=== PATIENT | male | born 1965 | race Caucasian/White ===

== ENCOUNTER 2022-02-20 08:10 | Outpatient (CLI) | payer OTHER, SELFPAY ==
--- NOTE | 2022-02-20 09:00 | CRLHL7_ITS ---
For Patients: As a result of the Century Cures Act, medical imaging exams and procedure reports are released immediately into your electronic medical record. You may view this report before your referring provider. If you have questions, please contact your health care provider. Indication: PELVIC AND PERINEAL PAIN Technique: Postcontrast CT abdomen and pelvis. Oral water. Nine hundred 98 cc Isovue 370 intravenous contrast. Please note that all CT scans at this facility use dose modulation, iterative reconstruction, and/or weight-based dosing when appropriate to reduce radiation dose to as low as reasonably achievable. Comparison: None Findings: Lung bases are clear. No pleural effusion. Benign cysts are present within the liver measuring up to 1.6 cm. Normal gallbladder. Pancreas normal. Normal spleen and adrenal glands. Normal kidneys and ureters. No intra-abdominal or intrapelvic adenopathy. Postop changes of partial colectomy with intact primary anastomosis within the left pelvis. No bowel obstruction, free air, free fluid or abscess. Tiny umbilical hernia containing fat measuring less than 1 cm. No bladder stone. Prostate mildly prominent. Grade 1/2 spondylolytic spondylolisthesis L5 on S1 with associated degenerative disc disease. Impression: Diffuse hepatic steatosis with incidental benign cysts. Postop changes partial colectomy. No bowel obstruction or inflammatory change. No peroneal abscess or pelvic soft tissue mass. Please note that all CT scans at this facility use dose modulation, iterative reconstruction, and/or weight-based dosing when appropriate to reduce radiation dose to as low as reasonably achievable. Dictated by Jesus Hernandez MD @ 02/20/2022 9:36:05 AM (Electronically Signed)
== END 2022-02-20 08:11 | disposition home or self-care (01) ==
LOC: CT 08:11
PROVIDERS: PCP Family Medicine; Visit Provider Family Medicine
DX: R10.2 Pelvic and perineal pain (principal); K76.0 Fatty (change of) liver, not elsewhere classified; K76.89 Other specified diseases of liver
CPT/HCPCS: 74177; Q9967

== ENCOUNTER 2022-07-12 14:38 | Outpatient (CLI) | payer OTHER, SELFPAY ==
--- OUTSIDE RECORDS SUMMARY | 2022-07-12 14:55 | XMS_ITS | Encounter Summary ---
:1965 Author Care Team Providers Name Role Phone Ameya Joyce MD Primary Care Provider [phone] Reason for Visit Varicocele Assessment and Plan 1. Cyst of epididymis Discussion Note will set up for excision of left epidid ymal cyst. MARIE discussed. Patient educational handouts: No information available. Plan of Care Reminders Provider Appointments [facility] 60 07/19/2022 12:00PM Chris villegas MD Lab None recorded. ? ? Referral None recorded. ? ? Procedures None recorded. ? ? Surgeries None recorded. ? ? Imaging None recorded. ? ? Medications Name Start Date ? ? amitriptyline 10 mg tablet ? atorvastatin 20 mg tablet ? Medications Administered None recorded. Vitals Height Weight BMI 6 ft 2 in 235 lbs 30.2 kg/m2 Results Lab Results None recorded. Allergies Code Code System Name Reaction Severity Onset Penicillins ? ? 06/09/2015 Problems None recorded. Procedures Date Name Performed by ? 05/15/2018 Colonoscopy Information not avai lable ? Arthroscopic Meniscectomy Information no t available ? Procedure on Wrist Information not avai lable Notes: both ? Excision of Colon Information not avai lable Vaccine List Vaccine Type COVID-19, mRNA, LNP-S, PF, 30 mcg/0.3 mL dose (Entefy) 11/25/2020 12/16/2020 08/05/2021 Influenza, injectable, MDCK, preservativ e free, quadrivalent 05/11/2020 influenza, injectable, quadrivalent, pre servative free 08/05/2018 influenza, recombinant, quadrIvalent,inj ectable, preservative free 07/13/2021 influenza, seasonal, injectable 06/22/2011 08/23/2012 05/20/2014 influenza, seasonal, injectable, preserv ative free 06/08/2015 zoster recombinant 05/11/2020 09/01/2020 Social History Tobacco Smoking Status Former Smoker What was the date of your most recent tobacco 05/15/2022 screening? What is your level of alcohol consumption? Moderate Do you or have you ever used any other forms of N tobacco or nicotine? What is your level of caffeine consumption? Heavy When did you quit smoking? 16+yearssincelastcigarette Family History Relation Problem Onset Age of Age Notes Brother Diverticulitis (No Information) N/A (No Notes ) Father Malignant tumor of lung (No Information) N/A (No Notes) Mother Malignant tumor of lung (No Information) N/A (No Notes) Functional Status Unknown. Past Encounters 05/15/2022 Cyst of Epididymis Chris Gonzales MD: [address], [place] [address], Ph. History of Present Illness Note: <div>has U/S done after the last visit and showed varicocele left >right. still getting some bother from the left side. </div> Review of Systems ? Comprehensive General Adult ROS Reported By: Patient Constitutional: Constitutional: no fever, no chills Eyes: Eyes: no dry eyes, no vision change, no irritation Endocrine: Endocrine: no fatigue, no in creased thirst Cardiovascular: Cardiovascular: no chest prudence n, no palpitations Integumentary: Skin: no rashes, no change i n skin color Respiratory: Respiratory: no wheezing, no cough, no shortness of breath Gastrointestinal: Gastrointestinal: no abdomin al pain, no nausea, no vomiting, no constipation, no GERD Musculoskeletal: Musculoskeletal: no neck prudence n, no back pain Neurologic: Neurologic: no tremor, no di zziness, no numbness, no headaches Genitourinary: Genitourinary: no incontinen ce, no difficulty urinating ENMT: Ears: no ear pain. Mouth/Thr oat: no sore throat Allergic/Immunologic: Allergy/Immunologic: no itch ing, no hives Hematologic/Lymphatic: Hematologic/Lymphatic no swo llen glands, no excessive bleeding Psychiatric: Psych: no hallucinations, (n ormal) sleep disturbances: mismatch of sleep / wake paula edule with lifestyle needs Physical Exam ? General Adult Exam Male Reported By: Patient Constitutional: General Appearance: healthy- appearing. Level of Distress: NAD. Ambulation: ambulating riley lly Lungs: Respiratory effort: no dyspn ea. Auscultation: breath sounds normal, good air movement Abdomen: Hernia: none palpable Male : Scrotum: varicocele; left. T cruz: palpable bilaterally, not enlarged; left epididymal cy st, tis is the tender spot
--- OUTSIDE RECORDS SUMMARY | 2022-07-12 14:55 | XMS_ITS | Clinical Summary ---
:1965 Author Organization [employer] [facility] [place] [address] Care Team Providers Name Role Phone George Preston MD Unavailable Unavailable Pcp, No Primary Care Provider Unavailable Allergies Active Allergy Reactions Severity Noted Date Comments Penicillins Hives 12/02/2007 Oxycodone-Acetaminophen Rash 06/30/2008 Medications Medication Sig Dispensed Refills Start Date End Date Status PROTONIX 20 MG TAB 20mg twice daily 0 Active Active Problems Problem Noted Date SBO (small bowel obstruction) 07/02/2008 Inguinal hernia with obstruction, without mention of g angrene, unilateral 03/23/2008 or unspecified, (not specified as recurrent) Diverticulitis of colon (without mention of hemorrhage ) 03/16/2008 Immunizations Name Administration Dates Next Due COVID-19 vaccine (DataContact 30mcg/0.3mL) PF, 1, 11/25/2020 DANIELLE Family History Medical History Relation Name Comments Cancer Father Cancer Mother Relation Name Status Comments Father Alive lung cancer Mother (Age 67) lung cancer Social History Tobacco Use Types Packs/Day Years Used Date Former Smoker Smokeless Tobacco: Current User Chew Tobacco Cessation: Ready to Quit: No; Co unseling Given: Yes Alcohol Use Standard Drinks/Week Comments Yes 2 (1 standard drink = 0.6 oz pure alcoho l) per month Alcohol Habits Answer Date Recorded How often do you have a drink containing alcohol? Not asked How many drinks containing alcohol do you have on a typical Not asked day when you are drinking? How often do you have six or more drinks on one occasion? No t asked Comment: per month 09/21/2015 Sex Assigned at Date Recorded Not on file Obstetrics History Last Filed Vital Signs Vital Sign Reading Time Taken Comments Blood Pressure 114/76 09/21/2015 11:11 AM DANCING MASTER Pulse 84 09/21/2015 10:19 AM DANCING MASTER Temperature 36.1 ??C (97 ??F) 09/21/2015 10:19 AM DANCING MASTER Respiratory Rate 20 09/21/2015 10:19 AM DANCING MASTER Oxygen Saturation 97% 09/21/2015 10:19 AM DANCING MASTER Inhaled Oxygen Concentration - - Weight 103 kg (227 lb 1.6 oz) 09/21/2015 10:19 AM DANCING MASTER Height 186.7 cm (6' 1.5) 09/21/2015 10:19 AM DANCING MASTER Body Mass Index 29.56 09/21/2015 10:19 AM DANCING MASTER Plan of Treatment Health Maintenance Due Date Last Done Comments Tdap 1978 HIV for age 15-65 1982 Hepatitis C screening for age 18-79 1985 Tetanus booster 1987 Colonoscopy through age 75 2012 Lipids for age 45-75 2012 BMI (ht and wt on same day) for age 18+ 09/21/2016 09/21/19 16 Depression screening for age 12+ 09/21/2016 09/21/2015 Zoster (shingles) series for age 50+ (1 of 2017 2) COVID-19 vaccine series (3 - Booster for 02/10/2021 021, 11/25/2020 Pfizer series) Influenza for age 50-64 04/13/2022 Medical Devices Implanted Type Area Director Facilities Maintenance Device Shelf Model / Identifier Expiration Serial / Date Lot Graft Alloderm 6x16cm - [id number] Left: [place] 07/13/2009 [id number] / Implanted: Qty: 1 on 03/23/2008 at [facility] / [id number] Description: LOGGED & MAILED JI Results Not on filefrom Last 3 Months Insurance Payer Benefit Plan Subscriber ID Effective Phone Address Typ e / Group Dates WC WORKERS COMP WC MARJORIE [id number] 2014-Prese [phone] [address] [address] CMS nt [address] [place] [address] WC WORKERS COMP WC MARJORIE [id number] 2014-Prese [address] [address] [place] [address] WC WORKERS COMP WC MARJORIE [id number] 2015-Pres [address] [address] [place] [address] WC WORKERS COMP WC MARJORIE [id number] 2015-Pres [address] [address] [place] [address] [facility] [id number] 2020-Prese [address] [place] [address] Yon Moreau Comp Self 1965 [address] [place] [address] Yon Moreau Comp Self [address] ([address]) [place] [address] Yon Moreau Comp Self [address] ([address] [address] Yon Moreau Comp Self [address] ([address] [address] Yon Moreau Personal/Family Self 1965 [address]Home) [place] [address] Yon Moreau Personal/Family Self [address] (Home) [place] [address] Advance Directives Latest Code Status on File Code Status Date Activated Date Inactivated Comments Full Code 08/27/2008 8:26 AM 08/28/2008 2:22 AM Full Code 07/02/2008 9:19 AM 07/05/2008 6:17 PM Full Code 06/25/2008 9:39 AM 06/30/2008 6:19 PM Full Code 03/23/2008 11:34 PM 03/24/2008 8:55 PM Full Code 03/15/2008 6:02 PM 03/20/2008 1:27 PM Care Teams Social Work Specialist Relationship Specialty Start Date End Date Pcp, No PCP - General 11/25/20 . George Preston MD Family Practice 08/19/14
--- OUTSIDE RECORDS SUMMARY | 2022-07-12 14:55 | XMS_ITS ---
:1965 Author Care Team Providers Name Role Phone SANTOS FLORES MD Primary Care Provider [phone] Allergies Code Code System Name Reaction Severity Status Onset Penicillins ? ? Active 06/09/20 15 Medications Name Status Start Date Stop Date ? ? amitriptyline 10 mg tablet Active ? Not a vailable atorvastatin 20 mg tablet Active ? Not av ailable azithromycin 250 mg tablet Completed ? 04/13 TAKE 2 TABLETS BY MOUTH FOR 1 DAY THEN TAKE 1 TABLET BY MOUTH DAILY FOR 4 DAYS celecoxib 200 mg capsule Completed ? 022 doxycycline hyclate 100 mg capsule Completed ? 04/13/2022 TAKE 1 CAPSULE BY MOUTH TWICE DAILY FOR 14 DAYS hydrocodone 5 mg-acetaminophen 325 mg tablet Completed ? 04/13/2022 TAKE 1 TABLET BY MOUTH EVERY 6 HOURS NEEDED FOR PAIN Problems None recorded. Procedures Date Name Performed by ? 05/15/2018 Colonoscopy Information not avai lable ? Arthroscopic Meniscectomy Information no t available ? Procedure on Wrist Information not avai lable Notes: both ? Excision of Colon Information not avai lable 04/13/2022 US, Scrotum [facility] [address] [facility] [facility] [place] [address] (Work Place) Results Lab Results Date Name Specimen Result Interpretation Description Value Range Status Address ? 04/13/2022 Urinalysis, ? pH-Status 6.0 ? ? [facility]: [address], [place] ? ? ? Blood-Status Trace ? ? [facility]: [address], [place] 04/13/2022 Urinalysis, ? No observation ? ? ? Dipstick recorded. Past Encounters 05/15/2022 Cyst of Epididymis Chris Gonzales MD: [address], [place] [address], Ph. 04/13/2022 Pain in Testicle; Pain in Scrotum Chris Gonzales MD: [address] [facility] [facility], [place] [address], Ph. Social History Tobacco Smoking Status Former Smoker Vaccine List Vaccine Type COVID-19, mRNA, LNP-S, PF, 30 mcg/0.3 mL dose ([place]) 11/25/2020 12/16/2020 08/05/2021 Influenza, injectable, MDCK, preservativ e free, quadrivalent 05/11/2020 influenza, injectable, quadrivalent, pre servative free 08/05/2018 influenza, recombinant, quadrIvalent,inj ectable, preservative free 07/13/2021 influenza, seasonal, injectable 06/22/2011 08/23/2012 05/20/2014 influenza, seasonal, injectable, preserv ative free 06/08/2015 zoster recombinant 05/11/2020 09/01/2020 Plan of Care Reminders Provider Appointments None recorded. ? ? Lab None recorded. ? ? Referral None recorded. ? ? Procedures None recorded. ? ? Surgeries None recorded. ? ? Imaging None recorded. ? ? Vitals 05/15/2022 01:20PM POST OP 10 Height Weight BMI 6 ft 2 in 235 lbs 30.2 kg/m2 04/13/2022 11:00AM NEW PATIENT 20 Height Weight BMI 6 ft 2 in 235 lbs 30.2 kg/m2
--- OUTSIDE RECORDS SUMMARY | 2022-07-12 14:55 | XMS_ITS | Encounter Summary ---
:1965 Author Care Team Providers Name Role Phone Ameya Joyce MD Primary Care Provider [phone] Reason for Visit Testicle Pain Assessment and Plan 1. Pain in testicle ? urinalysis, dipstick 2. Pain in scrotum Discussion Note will set up for scrotal U/S with dopple r check for varicocele/cysts in epididymis. Patient educational handouts: No information available. Plan of Care Reminders Provider Appointments [facility] 60 07/19/2022 12:00PM Chris villegas MD Lab Urinalysis, Dipstick [facility] Referral None recorded. ? ? Procedures None recorded. ? ? Surgeries None recorded. ? ? Imaging None recorded. ? ? Medications Name Start Date ? ? amitriptyline 10 mg tablet ? atorvastatin 20 mg tablet ? Medications Administered None recorded. Vitals Height Weight BMI 6 ft 2 in 235 lbs 30.2 kg/m2 Results Lab Results Date Name Specimen Result Interpretation Description Value Range Status Address ? 04/13/2022 Urinalysis, ? pH-Status 6.0 ? ? [facility] [address] [facility] [address], [place] ? ? ? Blood-Status Trace ? ? [facility]: [address], [place] Allergies Code Code System Name Reaction Severity Onset Penicillins ? ? 06/09/2015 Problems None recorded. Procedures Date Name Performed by ? 05/15/2018 Colonoscopy Information not avai lable ? Arthroscopic Meniscectomy Information no t available ? Procedure on Wrist Information not avai lable Notes: both ? Excision of Colon Information not avai lable 04/13/2022 US, Scrotum [facility] [address] [place] [place] [address] (Work Place) Vaccine List Vaccine Type COVID-19, mRNA, LNP-S, PF, 30 mcg/0.3 mL dose (CC video) 11/25/2020 12/16/2020 08/05/2021 Influenza, injectable, MDCK, preservativ e free, quadrivalent 05/11/2020 influenza, injectable, quadrivalent, pre servative free 08/05/2018 influenza, recombinant, quadrIvalent,inj ectable, preservative free 07/13/2021 influenza, seasonal, injectable 06/22/2011 08/23/2012 05/20/2014 influenza, seasonal, injectable, preserv ative free 06/08/2015 zoster recombinant 05/11/2020 09/01/2020 Social History Tobacco Smoking Status Former Smoker What was the date of your most recent tobacco 05/15/2022 screening? When did you quit smoking? 16+yearssincelastcigarette What is your level of alcohol consumption? Moderate Do you or have you ever used any other forms of N tobacco or nicotine? What is your level of caffeine consumption? Heavy Family History Relation Problem Onset Age of Age Notes Brother Diverticulitis (No Information) N/A (No Notes ) Father Malignant tumor of lung (No Information) N/A (No Notes) Mother Malignant tumor of lung (No Information) N/A (No Notes) Functional Status Unknown. Past Encounters 04/13/2022 Pain in Testicle; Pain in Scrotum Chris Gonzales MD: [address] [facility], [place] [address], Ph. History of Present Illness Note: <div>having intermittent scrotal discomfort, starting 12/2021 switched from side to side at first now mainly left side. had CT which was negativeno scortal imaging done. had a couple courses of abx for presumed epididymitis. noticed no change at all with that. sx's worse with physical activity or sitting and driving long time. </div> Review of Systems ? Comprehensive General [...] riley lly Lungs: Respiratory effort: no dyspn ea Abdomen: Inspection and Palpation: no CVA tenderness. Hernia: none palpable Male : Penis: no lesions, circumcis ed. Scrotum: no swelling; both cord a little thick. Testes: palpab le bilaterally, not enlarged; thickening or cysts both upp er epididymis Musculoskeletal:: Motor Strength and Tone: nor mal
[2022-07-12 17:43] LABS: Chloride* 104 mmol/L (96-114)
[2022-07-12 17:44] LABS: Potassium* 4.5 mmol/L (3.6-5.1); Sodium* 138 mmol/L (135-149)
[2022-07-12 17:46] LABS: Estimated Glomerular Filt Rate 89 ml/min
[2022-07-12 17:47] LABS: Blood Urea Nitrogen* 21 mg/dL (7-30); Calcium* 9.2 mg/dL (8.4-10.6); Carbon Dioxide* 28 mmol/L (20-32); Glucose* 92 mg/dL (60-115)
[2022-07-12 18:18] LABS: PSA Screen* 2.85 ng/mL (0.10-4.00)
== END 2022-07-12 14:39 | disposition home or self-care (01) ==
PROVIDERS: PCP Family Medicine; Visit Provider Family Medicine
DX: Z01.818 Encounter for other preprocedural examination (principal); Z12.5 Encounter for screening for malignant neoplasm of prostate
CPT/HCPCS: 80048; 84153

== ENCOUNTER 2023-04-13 15:04 | Outpatient (CLI) | payer OTHER, SELFPAY | END 2023-04-13 15:05 | disposition home or self-care (01) | PROVIDERS: PCP Family Medicine; Visit Provider Family Medicine | DX: Z01.818 Encounter for other preprocedural examination (principal); E78.5 Hyperlipidemia, unspecified; M79.676 Pain in unspecified toe(s); Z13.0 Encounter for screening for diseases of the blood and blood-forming organs and certain disorders involving the immune mechanism | CPT/HCPCS: 80048; 84550 ==

== ENCOUNTER 2023-05-02 08:29 | Outpatient (CLI) | payer OTHER, SELFPAY | END 2023-05-02 08:30 | disposition home or self-care (01) | PROVIDERS: PCP Family Medicine; Visit Provider Family Medicine | DX: Z00.00 Encounter for general adult medical examination without abnormal findings (principal); E78.5 Hyperlipidemia, unspecified; Z13.1 Encounter for screening for diabetes mellitus | CPT/HCPCS: 80061; 82947 ==

== ENCOUNTER 2024-05-02 11:09 | Outpatient (CLI) | payer OTHER, SELFPAY ==
--- OUTSIDE RECORDS SUMMARY | 2024-05-02 11:14 | XMS_ITS | Clinical Summary ---
Author Organization [facility] [facility] Address [place], [place] [address] Care Team Providers Care Shot Peen Operator Name Role Phone George Preston MD Unavailable [phone] Pcp, No Primary Care Provider Unavailabl e Allergies Active Allergy Reactions Criticality Noted Date Comments Penicillins Hives 12/02/2007 Oxycodone-Acetaminophen Rash 06/30/2008 Medications Medication Sig Dispensed Refills Start Date End Date Status PROTONIX 20 MG TAB 20mg twice daily Active Active Problems Problem Noted Date Diagnosed Date SBO (small bowel obstruction) 07/02/2008 Inguinal hernia with obstruc tion, without mention of gangrene, unilateral or unspecified, (not specified as recurrent) 03/23/2008 Diverticulitis of colon (without mention of hemo rrhage) 03/16/2008 Immunizations Name Administration Dates Next Due COVID-19 vaccine (anywayanyday 30mcg/0.3mL) DANIELLE Brady 12/16/2020,11/25/2020 Family History Medical History Relation Name Comments Cancer Father Cancer Mother Relation Name Status Comments Father Alive lung cancer Mother (Age 67) lung cance r Social History Tobacco Use Types Packs/Day Years Used Date Smoking Tobacco: Former Smokeless Tobacco: Current Chew Tobacco Cessation:Ready to Q uit: No; Counseling Given: Yes Alcohol Use Standard Drinks/Week Comments Yes 2 (1 standard drink = 0.6 oz pur e alcohol) per month Sex and Gender Information Value Date Recorded Sex Assigned at Not on file Gender Identity Not on file Sexual Orientation Not on file Obstetrics History Last Filed Vital Signs Vital Sign Reading Time Taken Comments Blood Pressure 114/76 09/21/2015 11:11 AM DENTAL LABORATORY SUPERVISOR Pulse 84 09/21/2015 10:19 AM DENTAL LABORATORY SUPERVISOR Temperature 36.1 ??C (97 ??F) 09/21/2015 10:19 AM DENTAL LABORATORY SUPERVISOR Respiratory Rate 20 09/21/2015 10:19 AM DENTAL LABORATORY SUPERVISOR Oxygen Saturation 97% 09/21/2015 10:19 AM DENTAL LABORATORY SUPERVISOR Inhaled Oxygen Concentration - - Weight 103 kg (227 lb 1.6 oz) 09/21/2015 10:19 A M DENTAL LABORATORY SUPERVISOR Height 186.7 cm (6' 1.5) 09/21/2015 10:19 AM CS T Body Mass Index 29.56 09/21/2015 10:19 AM DENTAL LABORATORY SUPERVISOR Plan of Treatment Health Maintenance Due Date Last Done Comments Tdap 1978 HIV for age 15-65 1982 Hepatitis C screening for ag e 18-79 1985 Tetanus booster 1987 Colonoscopy through age 75 2012 Lipids for age 45-75 2012 BMI (ht and wt on same day) for age 18+ 09/21/2016 09/21/2015 Depression screening for age 12+ 09/21/2016 09/21/2015 Zoster (shingles) series for age 50+ (1 of 2) 2017 COVID-19 vaccine series ( season) 2024 12/16/2020, 11/25/2020 Influenza for age 50-64 04/13/2024 Pneumococcal series for age 6-64 Aged Out No longer eligible b ased on patient's age to complete this topic Medical Devices Implanted Type Area Anodic Treater Device Identifier Shelf Expiration Date Model / Serial / Lot Graft Alloderm 6x16cm - [id number] Implanted:Qty: 1 on 03/23/2008 at [facility] Left: Inguinal LIFECELL OLGA LIDIA 07/13/2009 [id number] / / [id number] Description:LOGGED & MAILED JI Advance Directives * Full Code (Latest Code Status on File) Date Activated Date Inactivated Comments 08/27/2008 8:26 AM 08/28/2008 2:22 AM * Full Code Date Activated Date Inactivated Comments 07/02/2008 9:19 AM 07/05/2008 6:17 PM * Full Code Date Activated Date Inactivated Comments 06/25/2008 9:39 AM 06/30/2008 6:19 PM * Full Code Date Activated Date Inactivated Comments 03/23/2008 11:34 PM 03/24/2008 8:55 PM * Full Code Date Activated Date Inactivated Comments 03/15/2008 6:02 PM 03/20/2008 1:27 PM Care Teams Shot Peen Operator Relationship Specialty Start Date End Date Pcp, No . PCP - General 11/25/20 George Preston MD Family Practice 08/19/14
== END 2024-05-02 11:10 | disposition home or self-care (01) ==
PROVIDERS: PCP Family Medicine; Visit Provider Family Medicine
DX: E78.2 Mixed hyperlipidemia (principal); R05.9 Cough, unspecified; Z12.5 Encounter for screening for malignant neoplasm of prostate
CPT/HCPCS: 80053; 80061; G0103

== ENCOUNTER 2024-05-19 14:51 | Outpatient (CLI) | payer OTHER, SELFPAY ==
--- OUTSIDE RECORDS SUMMARY | 2024-05-19 14:54 | XMS_ITS | Clinical Summary ---
Author Organization [employer] Address [place], [place] [address] Care Team Providers Care Airport Manager Name Role Phone George Preston MD Unavailable [phone] Pcp, No Primary Care Provider Unavailabl [...] Name Administration Dates Next Due COVID-19 vaccine ([employer] 30mcg/0.3mL) DANIELLE Brady 12/16/2020,11/25/2020 Family History Medical [...] Comments Blood Pressure 114/76 09/21/2015 11:11 AM ENGLISH HORN PLAYER Pulse 84 09/21/2015 10:19 AM ENGLISH HORN PLAYER Temperature 36.1 ??C (97 ??F) 09/21/2015 10:19 AM ENGLISH HORN PLAYER Respiratory Rate 20 09/21/2015 10:19 AM ENGLISH HORN PLAYER Oxygen Saturation 97% 09/21/2015 10:19 AM ENGLISH HORN PLAYER Inhaled Oxygen Concentration - - Weight 103 kg (227 lb 1.6 oz) 09/21/2015 10:19 A M ENGLISH HORN PLAYER Height 186.7 cm (6' 1.5) 09/21/2015 10:19 AM CS T Body Mass Index 29.56 09/21/2015 10:19 AM ENGLISH HORN PLAYER Plan of Treatment Health Maintenance Due Date [...] this topic Medical Devices Implanted Type Area Land Mobile Radio Technician Device Identifier Shelf Expiration Date Model / Serial / Lot Graft Alloderm 6x16cm - [id number] Implanted:Qty: 1 on 03/23/2008 at [facility] Left: Inguinal [employer]CELL OLGA LIDIA 07/13/2009 [id number] / / [id number] Description:LOGGED & MAILED JI Advance Directives * [...] 6:02 PM 03/20/2008 1:27 PM Care Teams Airport Manager Relationship Specialty Start Date End Date Pcp, No . PCP - General 11/25/20 George Preston MD Family Practice 08/19/14
--- NOTE | 2024-05-19 15:00 | CRLHL7_ITS ---
For Patients: As a result of the Century Cures Act, medical imaging exams and procedure reports are released immediately into your electronic medical record. You may view this report before your referring provider. If you have questions, please contact your health care provider. INDICATION: Productive cough, sore throat, headache, history of GERD TECHNIQUE: CT chest without contrast. COMPARISON: 05/02/2024 chest x-ray FINDINGS: Lungs and pleura: Few micro nodules in the lung apices measuring less than 4 mm each. No suspicious nodules or consolidation. Airways are clear. No pleural effusions, pleural thickening, or pneumothorax. Heart and vasculature: Heart size is normal. Thoracic aorta and pulmonary artery are normal in caliber. Lymph nodes/mediastinum: No mediastinal, hilar, or axillary adenopathy. Thyroid gland is normal. Chest wall: No masses. Upper abdomen: Normal. Bones: Unremarkable for age. IMPRESSION: No cause for cough identified. Please note that all CT scans at this facility use dose modulation, iterative reconstruction, and/or weight-based dosing when appropriate to reduce radiation dose to as low as reasonably achievable. Dictated by Bautista Loera MD @ 05/20/2024 2:11:40 PM (Electronically Signed)
== END 2024-05-19 14:52 | disposition home or self-care (01) ==
LOC: CT 14:52
PROVIDERS: PCP Family Medicine; Visit Provider Family Medicine
DX: R05.2 Subacute cough (principal); J02.9 Acute pharyngitis, unspecified; R51.9 Headache, unspecified
CPT/HCPCS: 71250

== ENCOUNTER 2024-07-14 19:39 | Outpatient (CLI) | payer OTHER, SELFPAY ==
--- OUTSIDE RECORDS SUMMARY | 2024-07-14 19:42 | XMS_ITS | Clinical Summary ---
Author Organization [employer] [facility] s & [facility] Address [place], [place] [address] Care Team Providers Care Sales Service Promoter Name Role Phone George Preston MD Unavailable [phone] Ameya Joyce MD Primary Care Provider Allergies Active Allergy Reactions Criticality Noted Date [...] colon (without mention of hemo rrhage) 03/16/2008 Encounters Date Type Department Care Team Description 06/29/2024 Transcribe Orders [facility] [address] [facility] [address] [place] [phone] Ameya Joyce MD 06/26/2024 Telephone [facility] [address] [place] [address] Pulmonary, Ulsc Screening 06/23/2024 Orders Only [facility] Scanner 1 scan: (1-Ord) INCOMING RECORDS-LABS, [facility], 06/23/2024 06/23/2024 Orders Only [facility] Scanner 1 scan: (1-Ord) INCOMING RECORDS-CT, [facility], 06/23/2024 from Last 3 Months Immunizations Name Administration Dates Next Due COVID-19 vaccine (Christophe [employer]-BioNTMoBeam 30mcg/0.3mL) P F, DANIELLE 12/16/2020,11/25/2020 Family History Medical History Relation Name [...] Comments Blood Pressure 114/76 09/21/2015 11:11 AM VICE PRESIDENT OF SOFTWARE ENGINEERING Pulse 84 09/21/2015 10:19 AM VICE PRESIDENT OF SOFTWARE ENGINEERING Temperature 36.1 C (97 F) 09/21/2015 10:19 AM VICE PRESIDENT OF SOFTWARE ENGINEERING Respiratory Rate 20 09/21/2015 10:19 AM VICE PRESIDENT OF SOFTWARE ENGINEERING Oxygen Saturation 97% 09/21/2015 10:19 AM VICE PRESIDENT OF SOFTWARE ENGINEERING Inhaled Oxygen Concentration - - Weight 103 kg (227 lb 1.6 oz) 09/21/2015 10:19 A M VICE PRESIDENT OF SOFTWARE ENGINEERING Height 186.7 cm (6' 1.5) 09/21/2015 10:19 AM CS T Body Mass Index 29.56 09/21/2015 10:19 AM VICE PRESIDENT OF SOFTWARE ENGINEERING Plan of Treatment Upcoming Encounters Date Type Department Care Team (Late st Contact Info) Description 07/29/2024 4:30 PM VICE PRESIDENT OF SOFTWARE ENGINEERING [facility] [address] [place] [address] Keegan Mccollum MBBS [address] [place] [address] Health Maintenance Due Date Last Done Comments [...] this topic Medical Devices Implanted Type Area Banquet Line Cook Device Identifier Shelf Expiration Date Model / Serial / Lot Graft Alloderm 6x16cm - [id number] Implanted:Qty: 1 on 03/23/2008 at [facility] Left: Inguinal LIFECE[employer] OLGA LIDIA 07/13/2009 [id number] / / [id number] Description:LOGGED & MAILED JI Procedures Procedure Name Priority Date/Time Associated Diagnosis Comments SCAN CORRESP-LABORATORY RESULTS 06/23/2024 12:00 AM VICE PRESIDENT OF SOFTWARE ENGINEERING SCAN CORRESP-IMAGING 06/23/2024 12:00 AM VICE PRESIDENT OF SOFTWARE ENGINEERING from Last 3 Months Results * SCAN CORRESP-LABORATORY RESULTS (06/23/2024 12:00 AM VICE PRESIDENT OF SOFTWARE ENGINEERING) Scanner OTHER * SCAN CORRESP-IMAGING (06/23/2024 12:00 AM VICE PRESIDENT OF SOFTWARE ENGINEERING) Anatomical Region Laterality Modality Other Scanner OTHER from Last 3 Months Advance Directives * Full Code (Latest Code [...] 6:02 PM 03/20/2008 1:27 PM Care Teams Sales Service Promoter Relationship Specialty Start Date End Date Ameya Joyce MD [address] [place] [address] PCP - General Family Practice 06/30/24 George Preston MD Family Practice 08/19/14
--- OUTSIDE RECORDS SUMMARY | 2024-07-14 19:42 | XMS_ITS | Data Portability ---
Author Organization MD - [facility], [facility] Address [address] [place] [address] Care Team Providers Care Credit Risk Modeler Name Role Phone SANTOS FLORES Primary Care Provider Assessment No assessment recorded. Plan of Treatment Reminders Order Date Submit Date Provider Last Modified By Organization Details Last Modified Time Details Appointments None recorded. Lab urinalysis , dipstick 2021 022 [email or web address] 9 [facility], [address], [address], [place], [address], 12:03:09 Referral None recorded. Procedures None recorded. Surgeries None recorded. Imaging None recorded. Medication Orders None recorded. Patient TargetsNo targets recorded. Patient Instructions Encounter Date Encounter Id Patient Instructions Last Modified By Organization Details Last Modified Time 04/13/2022 [id number] will set up for scrotal U/S with doppler check for varicocele/cysts in epididymis. Not available 04/13/2022 12:18:41 05/15/2022 [id number] will set up for excision of left epididymal cyst. MARIE discussed. Not available 05/15/2022 14:33:13 08/11/2022 [id number] doing ok will tr y taking Ibu and warm compresses for a while, IBU tabs will also help. [email or web address] Not available 08/11/2022 14:21:43 03/13/2023 [id number] will get scrotal U/S done and call with report. [email or web address] Not available 03/13/2023 17:03:08 05/10/2023 [id number] doing well will increase activity as tolerated. [email or web address] Not available 05/10/2023 09:55:41 Reason for Referral None Reported. Results Created Date Observation Date Name Description Value Unit Range Abnormal Flag Note LastModifiedBy Organization Detail LastModifiedTime 04/13/20 22 04/13/2022 urina lysis , dipst ick pH-Status 6.0 Not Available [facility] [address], [place], [address], 04/13/2022 12:02:44 04/13/20 22 04/13/2022 urina lysis , dipst ick Blood-Status Trace Not Available [facility] [address], [place], [address], 04/13/2022 12:02:44 04/13/20 22 04/13/2022 bladd er scan (PROC ) No observ ation record ed. BARCODE Not Available 2021 12:24:27 04/16/20 22 04/13/2022 US, scrot um No observ ation record ed. [email or web address] [facility] [place] [address], [place], [address], 05/01/2022 12:18:26 03/25/20 23 03/23/2023 US, scrot um No observ ation record ed. [email or web address] [facility] [place] [address], [place], [address], 03/26/2023 13:23:16 Result Notes None recorded. Problems Name Problem SNOMED Code Status Onset Date Resolution Date Notes Provider Name and Address Organization Details Recorded Time Cyst of epididymis 32705805 Active 023 Chris Gonzales MD [address], [place], [address], [facility] 09:55:11 Problem Notes None recorded. Procedures Surgical History Date Name Laterality Status Provider Name and Address Organization Details Recorded Time 04/13/20 22 Bladder Scan completed Chris Gonzales MD [address], [place], [address], [facility] 04/13/2022 11:58:27 05/15/20 18 Colonoscopy completed Marianna Christiana [facility] 05/15/2022 14:19:09 excision of colon completed Chris Gonzales MD [address] [place] [address],[address], [place], [address], [facility] 04/13/2022 12:00:58 procedure on wrist completed Chris Gonzales MD [address] [place] [address],[address], [place], [address], [facility] 04/13/2022 12:01:34 arthroscopic meniscectomy completed Arlene Burnette [facility] 04/13/2022 12:07:19 partial epididymectomy completed Blanca Delong [facility] 03/13/2023 16:26:44 Imaging Results Imaging Date Name Status LastModified by Organiz ation Details LastModified Time 04/13/2022 bladder scan (PROC) completed BARCODE Information not available 04/13/2022 12:24:27 04/13/2022 US, scrotum completed [email or web address] [facility] [place] [address], [place], [address], 05/01/2022 12:18:26 03/23/2023 US, scrotum completed [email or web address] [facility] [place] [address] [place], [address], 03/26/2023 13:23:16 Procedure Notes None recorded. Medical Equipment None Reported. Allergies Allergen ID Allergen Name Allergen Category Reaction Reaction Severity Criticality Documentation Date Start Date Code Code System Note Provider Name and Address Organization Details Recorded Time 415932 Medicinal product containin g penicilli n and acting as antibacte rial agent (product) medicatio n Not available Not available Not available 01/29/20202014 05502 05 SNOMED Not Available [employer] 0 00:47:29 Medications Name Sig Start Date Stop Date Status Note LastModified by Organization Details LastModified Time celecoxib 200 mg capsule TAKE 2 CAPSULES BY MOUTH DAILY FOR 5 DAYS THEN 1 CAPSULE DAILY 03/13 completed Not Available Not Available Not Available doxycycline hyclate 100 mg capsule TAKE 1 CAPSULE BY MOUTH TWICE DAILY FOR 14 DAYS 04/13 completed Not Available Not Available Not Available atorvastati n 20 mg tablet active Not Available Not Available Not Available azithromyci n 250 mg tablet TAKE 2 TABLETS BY MOUTH FOR 1 DAY THEN TAKE 1 TABLET BY MOUTH DAILY FOR 4 DAYS 04/13 completed Not Available Not Available Not Available hydrocodone 5 mg-acetamin ophen 325 mg tablet TAKE 1 TABLET BY MOUTH EVERY 6 HOURS NEEDED FOR PAIN 04/13 completed Not Available Not Available Not Available meloxicam 15 mg tablet TAKE 1 TABLET BY MOUTH EVERY DAY FOR 14 DAYS 05/10 completed Not Available Not Available Not Available bacitracin zinc 500 unit/gram topical ointment APPLY TO WOUND THREE TIMES DAILY FOR 5 DAYS 03/13 completed Not Available Not Available Not Available tramadol 50 mg tablet TAKE 1 TABLET BY MOUTH THREE TIMES DAILY NEEDED 05/10 completed Not Available Not Available Not Available oxycodone-a cetaminophe n 5 mg-325 mg tablet TAKE 1 TABLET BY MOUTH EVERY 6 HOURS NEEDED 03/13 completed Not Available Not Available Not Available amitriptyli ne 10 mg tablet 2022 active Not Available Not Available Not Avai lable cephalexin 500 mg capsule TAKE 1 CAPSULE THREE TIMES DAILY FOR 5 DAYS 05/10 completed Not Available Not Available Not Available levofloxaci n 500 mg tablet TAKE 1 TABLET BY MOUTH EVERY 24 HOURS FOR 14 DAYS 05/10 completed Not Available Not Available Not Available tramadol 05/10 completed Not Available Not Available Not Available Vitals Date Recorded Body height Body mass index (BMI) Body weight Provider Name and Address Organization Details Last Updated DateTime 04/13/2022 187.96 cm 30.2 kg/m2 114955.21 g Chris Gonzales MD [address],[facility] [address], [place], [address], [place] - [facility] 04/13/2022 11:59:15 Date Recorded Body height Body mass index (BMI) Body weight Provider Name and Address Organization Details Last Updated DateTime 05/15/2022 187.96 cm 30.2 kg/m2 356646.21 g Marianna Villeda [facility] 05/15/2022 14:18:26 Date Recorded Body height Body mass index (BMI) Body weight Provider Name and Address Organization Details Last Updated DateTime 08/11/2022 187.96 cm 30.2 kg/m2 689577.21 g Palak Sawyer [facility] 08/11/2022 14:11:10 Date Recorded Body height Body mass index (BMI) Body weight Provider Name and Address Organization Details Last Updated DateTime 03/13/2023 187.96 cm 30.2 kg/m2 944439.21 g [facility] 03/13/2023 16:25:24 Date Recorded Body height Body mass index (BMI) Body weight Provider Name and Address Organization Details Last Updated DateTime 05/10/2023 187.96 cm 32.1 kg/m2 169097.09 g Chris Gonzales MD [address] [place] [phone] [place] [address] 05/10/2023 09:45:12 Social History Question Answer Notes LastModified by Organizat ion Details LastModified Time Tobacco Smoking Status Former Smoker Chris Gonzales MD [address] [place], [place] [address] [place] [address] [facility] 04/13/2022 12:00:38 What Is Your Level Of Alcohol Consumption? Occasional Information not available 03/13/2023 How Many Times Per Week Do You Consume Alcohol? Less Than 1 Time Per Week [email or web address] Information not available 03/13/2023 What Is Your Level Of Caffeine Consumption? Moderate [email or web address] Information not available 03/13/2023 When Did You Quit Smoking? 16+yearssincel astcigarette [email or web address] Information not available 04/13/2022 What Was The Date Of Your Most Recent Tobacco Screening? 03/13/2023 [email or web address] Information not available 03/13/2023 Have You Ever Been Counseled For Unhealthy Alcohol Use? No [email or web address] Information not available 03/13/2023 Do You Use Any Illicit Or Recreational Drugs? No [email or web address] Information not available 03/13/2023 Has Tobacco Cessation Counseling Been Provided? No [email or web address] Information not available 03/13/2023 Do You Or Have You Ever Used Any Other Forms Of Tobacco Or Nicotine? No Information not available 05/15/2022 Sex: Unknown Functional Status None recorded. Mental Status None recorded. Family History Relationship Description Onset Age of this Age Resolved Age Notes LastModified by Organization Details LastModified Time Brother Diverticulit is [email or web address] Not available 04/13 11:59:57 Father Malignant tumor of lung [email or web address] Not available 04/13 12:00:09 Mother Malignant tumor of lung Not available 04/13 12:00:09 Medical History Condition Response Diabetes N Sexually Transmitted Infection N Other N Bleeding Disorder N High Blood Pressure N Kidney Stones N High Cholesterol Y GERD/Acid Reflux N Heart Disease N Cancer N Lung Disease N Depression N Immunizations Vaccine Type Date Status Provider Name and Address Organization Details Recorded Time Influenza, split virus, trivalent, PF 06/08/2015 completed Marianna ramirez [facility] 05/15/2022 14:18:35 COVID-19, mRNA, LNP-S, PF, 30 mcg/0.3 mL dose 08/05/2021 completed Marianna ramirez [facility] 05/15/2022 14:18:35 Influenza, split virus, trivalent, preservative 05/20/2014 completed Marianna ramirez [facility] 05/15/2022 14:18:35 Influenza, split virus, quadrivalent, PF 08/05/2018 completed Marianna ramirez [facility] 05/15/2022 14:18:35 Influenza, split virus, trivalent, preservative 08/23/2012 completed Marianna ramirez [facility] 05/15/2022 14:18:35 zoster recombinant 05/11/2020 completed Marianna ramirez [facility] 05/15/2022 14:18:35 zoster recombinant 09/01/2020 completed Marianna ramirez [facility] 05/15/2022 14:18:35 Influenza, recombinant, quadrivalent, PF 07/13/2021 completed Marianna Villeda null, [facility] 05/15/2022 14:18:35 COVID-19, mRNA, LNP-S, PF, 30 mcg/0.3 mL dose 11/25/2020 completed Marianna Villeda null, [facility] 05/15/2022 14:18:35 Influenza, split virus, trivalent, preservative 06/22/2011 completed Marianna Villeda null, [facility] 05/15/2022 14:18:35 COVID-19, mRNA, LNP-S, PF, 30 mcg/0.3 mL dose 12/16/2020 completed Marianna ramirez, [facility] 05/15/2022 14:18:35 Influenza, MDCK, quadrivalent, PF 05/11/2020 completed Marianna ramirez, [facility] 05/15/2022 14:18:35 Past Encounters Encounter ID Performer Location Encounter Start Date Encounter Closed Date Diagnosis/Indication Diagnosis SNOMED-CT Code Diagnosis ICD10 Code [id number] Chris Gonzales MD [facility] [address] [place] [address] 04/13/2022 11:37:47 04/18/2022 16:28:27 Pain in testicle 77724547 N50.819 Pain in scrotum 23781261 N50.82 [id number] Marianna IRVING_Edinalan [address] [place] [address] 05/15/2022 14:06:39 05/17/2022 14:10:24 Cyst of epididymis 68598743 N50.3 [id number] MD MARIA FERNANDA Gonzalez_Edinalan [address] [place] [address] 08/11/2022 14:01:21 08/15/2022 13:04:45 Cyst of epididymis 95787788 N50.3 [id number] Chris Gonzales MD [facility] [address] [place] [id number] 03/13/2023 16:20:43 03/19/2023 08:26:03 Benign neoplasm of epididymis 92823286 D29.32 [id number] Chris Gonzales MD [facility] [address] [place] [address] 05/10/2023 09:34:15 05/21/2023 17:26:05 Cyst of epididymis 50194193 N50.3 Health Concerns Section Related Observation LastModified by Organization Detai ls LastModified Time None Recorded Concern Status LastModified by Organization Details LastModified Time None Recorded Advance Directives Directive None Recorded Payers Encounter Date Sequence Insurance Name Policy Number Policy Perez Covered Member ID Perez Member ID Guarantor Name 04/13/2022 1 [facility] [id number] Yon Moreau [id number] Yon [employer] 05/15/2022 1 [facility] [id number] Yon Moreau [id number] Yon Vaughan [employer] 08/11/2022 1 [facility] [id number] Yon Moreau [id number] Yon Vaughan Binsyadira 03/13/2023 1 [facility] [id number] Yon Moreau [id number] Yon Vaughan Binsfeld 05/10/2023 1 [facility] [id number] Yon Moreau [id number] Yon Moreau Notes Date Note Type Note Provider Name and Address Organization Details Recorded Time 04/13/2022 text/html having intermitt ent scrotal discomfort, starting 12/2021 switched from side to side at first now mainly left side. had CT which was negativeno scortal imaging done. had a couple courses of abx for presumed epididymitis. noticed no change at all with that. sx's worse with physical activity or sitting and driving long time. Chris Gonzales MD [address], [place], [address], [facility] 04/13/2022 12:22:32 05/15/2022 text/html has U/S done aft er the last visit and showed varicocele left >right. still getting some bother from the left side. Marianna ramirez, [facility] 05/15/2022 14:35:58 08/11/2022 text/html post op check af ter partial epididymectomy. some discomfort above the testicle still. swelling mostly gone. Chris Gonzales MD [address], [place], [address], [facility] 08/11/2022 14:39:15 03/13/2023 text/html having discomfor t in area of spermatocelectomy done eary July last year, was goo for about 4 months and then started. not noticing much swelling. Chris Gonzales MD [address] [place] [address],[address], [place], [address], [facility] 03/13/2023 17:05:49 05/10/2023 text/html 3 week follow up after epididymal cyst removal. doing well since surgery, no issues. Chris Gonzales MD [address] [place] [address],[address], [place], [address], [facility] 05/10/2023 09:55:51
--- NOTE | 2024-07-23 08:47 | W.PM.SLEEP ---
Sleep Study Details Details Interpreting Provider: Kirsten Date of Sleep Study: 07/14/24 Sleep Study Details: STUDY TYPE:? Home unattended ? BMI:? 32.5 ORDERING PROVIDER:Anival Curtis INDICATION:? Concern about sleep apnea ? SLEEP SUMMARY:? 333 minutes monitored RESPIRATORY SUMMARY:? AHI 31, left lateral 17.8, supine 58.7, prone 94.1, right lateral 27.2 Low oxygen 84 1.5% of study oxygen less than 90% Snoring 52.5% PERIODIC LIMB MOVEMENTS OF SLEEP:? Not recorded CARDIAC:? Range 42-87, mean 53.2 IMPRESSION:? Severe obstructive sleep apnea worse in the supine and prone positions RECOMMENDATION: Treatment options include CPAP. Dental appliance and/or airway expansion surgery or possible treatment options but are less likely to be effective.
== END 2024-07-14 19:40 | disposition home or self-care (01) ==
LOC: SLEEP 19:40
PROVIDERS: PCP Family Medicine; Visit Provider Otolaryngology
DX: G47.33 Obstructive sleep apnea (adult) (pediatric) (principal)
CPT/HCPCS: 95806

== ENCOUNTER 2024-09-26 18:50 | Emergency (ER) | payer OTHER, SELFPAY ==
--- OUTSIDE RECORDS SUMMARY | 2024-09-26 18:52 | XMS_ITS | Clinical Summary ---
Author Organization [facility] Address [place], [place] [address] Care Team Providers Care Gi Tech Name Role Phone George Preston MD Unavailable [phone] Ameya Joyce MD Primary Care Provider Allergies Active Allergy Reactions Criticality Noted Date Comments Penicillins Hives 12/02/2007 Oxycodone-Acetaminophen Rash 06/30/2008 Medications PROTONIX 20 MG TAB 20mg twice daily Active Active Problems Problem Noted Date Diagnosed Date SBO (small bowel obstruction) 07/02/2008 Inguinal hernia with obstruc tion, without mention of gangrene, unilateral or unspecified, (not specified as recurrent) 03/23/2008 Diverticulitis of colon (without mention of hemo rrhage) 03/16/2008 Encounters Date Type Department Care Team Description 06/29/2024 Transcribe Orders [facility] [address] [place] [address] Ameya Joyce MD 06/26/2024 Telephone [facility] [address] [place] [address] Pulmonary, Ulsc Screening from Last 3 Months Immunizations Name Administration Dates Next Due COVID-19 vaccine (FlexionBio NTech 30mcg/0.3mL) DANIELLE CAMPA 12/16/2020,11/25/2020 Influenza RIV4 (Age 18+ Years) PRESERV FREE 08/2020 Influenza, IIV3 (Age >=3 years) 05/20/2014,08/23,06/22/2011 Influenza, IIV4 05/02/2023,07/04/2022,08/05/2018 Influenza,CCIIV4 PRESERV FREE 05/11/2020 Tdap 05/02/2023 Tetanus Toxoid 01/18/2007 Zoster (Shingrix-RZV, recombinant) 09/01/2020, Family History Medical History Relation Name Comments [...] Recorded Sex Assigned at Not on file Legal Sex Male 6:32 AM 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 GLASS 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 Gender Identity Not on file Sexual Orientation Not on file 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 Not on file Not on file Not on file Obstetrics History Last Filed Vital Signs Vital Sign Reading Time Taken Comments Blood Pressure 114/76 09/21/2015 11:11 AM PLATE GLASS INSTALLER Pulse 84 09/21/2015 10:19 AM PLATE GLASS INSTALLER Temperature 36.1 C (97 F) 09/21/2015 10:19 AM PLATE GLASS INSTALLER Respiratory Rate 20 09/21/2015 10:19 AM PLATE GLASS INSTALLER Oxygen Saturation 97% 09/21/2015 10:19 AM PLATE GLASS INSTALLER Inhaled Oxygen Concentration - - Weight 103 kg (227 lb 1.6 oz) 09/21/2015 10:19 A M PLATE GLASS INSTALLER Height 186.7 cm (6' 1.5) 09/21/2015 10:19 AM CS T Body Mass Index 29.56 09/21/2015 10:19 AM PLATE GLASS INSTALLER Plan of Treatment Upcoming Encounters Date Type Department Care Team (Late st Contact Info) Description 10/28/2024 2:30 PM CDT Office Visit [facility] [address] [place], [place] [phone] Lizabeth Anders MBBS [address] [facility] [address] [place] [address] Health Maintenance Due Date Last Done Comments HIV for age 15-65 1982 Hepatitis C screening for ag e 18-79 1985 Colonoscopy through age 75 2012 Lipids for age 45-75 2012 BMI (ht and wt on same day) for age 18+ 09/21/2016 09/21/2015 Depression screening for age 12+ 09/21/2016 09/21/19 16 Pneumococcal series for age 50+ (1 of 1 - PCV) 2017 COVID-19 vaccine series (5 - 2023- season) 2024 07/04/2022, 08/05/2021, 12/16/2020, Additional history exists Influenza for age 50-64 04/13/2024 05/02/20 23, 07/04/2022, 07/13/2021, Additional history exists Tetanus booster 05/02/2033 05/02/2023 Zoster (shingles) series for age 50+ Completed 09/01/2020, 05/11/2020 Tdap Completed 05/02/2023 Medical Devices Implanted Type Area Mixer Operator Device Identifier Shelf Expiration Date Model / Serial / Lot Graft Alloderm 6x16cm - [id number] Implanted:Qty: 1 on 03/23/2008 at [facility] Left: Inguinal [employer] OLGA LIDIA 07/13/2009 [id number] / / [id number] Description:LOGGED & MAILED JI Insurance [facility] [place] [id number] [employer] [place] [id number] MAR[employer]IE [employer] [facility] Advance Directives * Full Code (Latest Code [...] 6:02 PM 03/20/2008 1:27 PM Care Teams Gi Tech Relationship Specialty Start Date End Date Ameya Joyce MD [address] [place] [address] PCP - General Family Practice 06/30/24 George Preston MD Family Practice 08/19/14
--- OUTSIDE RECORDS SUMMARY | 2024-09-26 18:52 | XMS_ITS | Data Portability ---
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 Plan of Treatment Reminders Order Date Submit Date Provider Last Modified By Organization Details Last Modified Time Details Appointments None recorded. Lab urinalysis , dipstick 2021 022 [email or web address] 9 [facility], [address], [address], [place], [address], 12:03:09 Referral None recorded. Procedures None recorded. Surgeries None recorded. Imaging None recorded. Medication Orders None recorded. Patient TargetsNo targets recorded. Patient Instructions Encounter Date Encounter Id Patient Instructions Last Modified By Organization Details Last Modified Time 04/13/2022 [id number] will set up for scrotal U/S with doppler check for varicocele/cysts in epididymis. Not available 04/13/2022 12:18:41 05/15/2022 [id number] will set up for excision of left epididymal cyst. MARIE discussed. Not available 05/15/2022 14:33:13 08/11/2022 [id number] doing ok will tr y taking Ibu and warm compresses for a while, IBU tabs will also help. [email or web address] Not available 08/11/2022 14:21:43 03/13/2023 [id number] will get scrotal U/S done and call with report. [email or web address] Not available 03/13/2023 17:03:08 05/10/2023 [id number] doing well will increase activity as tolerated. [email or web address] Not available 05/10/2023 09:55:41 Reason for Referral None Reported. Results Created Date Observation Date Name Description Value Unit Range Abnormal Flag Note LastModifiedBy Organization Detail LastModifiedTime 04/13/20 22 04/13/2022 urina lysis , dipst ick pH-Status 6.0 Not Available [facility] [address], [place], [address], 04/13/2022 12:02:44 04/13/20 22 04/13/2022 urina lysis , dipst ick Blood-Status Trace Not Available [facility] [address], [place], [address], 04/13/2022 12:02:44 04/13/20 22 04/13/2022 bladd er scan (PROC ) No observ ation record ed. BARCODE Not Available 2021 12:24:27 04/16/20 22 04/13/2022 US, scrot um No observ ation record ed. [email or web address] [facility] [place] [address], [place], [address], 05/01/2022 12:18:26 03/25/20 23 03/23/2023 US, scrot um No observ ation record ed. [email or web address] [facility] [place] [address], [place], [address], 03/26/2023 13:23:16 Result Notes None recorded. Problems Name Problem SNOMED Code Status Onset Date Resolution Date Notes Provider Name and Address Organization Details Recorded Time Cyst of epididymis 30246806 Active 023 Chris Gonzales MD [address], [place], [address], [facility] 09:55:11 Problem Notes None recorded. Procedures Surgical History Date Name Laterality Status Provider Name and Address Organization Details Recorded Time 04/13/20 22 Bladder Scan completed Chris Gonzales MD [address], [place], [address], [facility] 04/13/2022 11:58:27 05/15/20 18 Colonoscopy completed Marianna Christiana [facility] 05/15/2022 14:19:09 excision of colon completed Chris Gonzales MD [address] [place] [address],[address], [place], [address], [facility] 04/13/2022 12:00:58 procedure on wrist completed Chris Gonzales MD [address] [place] [address],[address], [place], [address], [facility] 04/13/2022 12:01:34 arthroscopic meniscectomy completed Arlene Burnette [facility] 04/13/2022 12:07:19 partial epididymectomy completed Blanca Delong [facility] 03/13/2023 16:26:44 Imaging Results Imaging Date Name Status LastModified by Organiz ation Details LastModified Time 04/13/2022 bladder scan (PROC) completed BARCODE Information not available 04/13/2022 12:24:27 04/13/2022 US, scrotum completed [email or web address] [facility] [place] [address] [place], [address], 05/01/2022 12:18:26 03/23/2023 US, scrotum completed [email or web address] [facility] [place] [address] [place], [address], 03/26/2023 13:23:16 Procedure Notes None recorded. Medical Equipment None Reported. Allergies Allergen ID Allergen Name Allergen Category Reaction Reaction Severity Criticality Documentation Date Start Date Code Code System Note Provider Name and Address Organization Details Recorded Time 241920 Product containin g penicilli n and antibioti c (product) medicatio n Not available Not available Not available 01/29/20202014 53965 05 SNOMED Not Available Not Available Not Available Medications Name Sig Start Date Stop Date [...] Updated DateTime 04/13/2022 187.96 cm 30.2 kg/m2 441945.21 g Chris Gonzales MD [address], [place], [address], [place] [facility] 04/13/2022 11:59:15 Date Recorded Body height Body mass index (BMI) Body weight Provider Name and Address Organization Details Last Updated DateTime 05/15/2022 187.96 cm 30.2 kg/m2 410532.21 g Marianna Christiana [facility] 05/15/2022 14:18:26 Date Recorded Body height Body mass index (BMI) Body weight Provider Name and Address Organization Details Last Updated DateTime 08/11/2022 187.96 cm 30.2 kg/m2 790563.21 g Palak Sawyer [facility] 08/11/2022 14:11:10 Date Recorded Body height Body mass index (BMI) Body weight Provider Name and Address Organization Details Last Updated DateTime 03/13/2023 187.96 cm 30.2 kg/m2 687773.21 g Blanca Delong [facility] 03/13/2023 16:25:24 Date Recorded Body height Body mass index (BMI) Body weight Provider Name and Address Organization Details Last Updated DateTime 05/10/2023 187.96 cm 32.1 kg/m2 090768.09 g Chris Gonzales MD [address] [place] [address] 05/10/2023 09:45:12 Social History Question Answer Notes LastModified by Organizat ion Details LastModified Time Tobacco Smoking Status Former Smoker Chris Gonzales MD [address] [place], [place] [id number] [place] [address] 04/13/2022 12:00:38 What Is Your Level Of Alcohol Consumption? Occasional Information not available 03/13/2023 How Many Times Per Week Do You Consume Alcohol? Less Than 1 Time Per Week [email or web address] Information not available 03/13/2023 What Is Your Level Of Caffeine Consumption? Moderate Information not available 03/13/2023 When Did You Quit Smoking? 16+yearssincel astcigarette [email or web address] Information not available 04/13/2022 What Was The Date Of Your Most Recent Tobacco Screening? 03/13/2023 [email or web address] Information not available 03/13/2023 Have You Ever Been Counseled For Unhealthy Alcohol Use? No [email or web address] Information not available 03/13/2023 Do You Use Any Illicit Or Recreational Drugs? No [email or web address] Information not available 03/13/2023 Has Tobacco Cessation Counseling Been Provided? No [email or web address] Information not available 03/13/2023 Do You Or Have You Ever Used Any Other Forms Of Tobacco Or Nicotine? No Information not available 05/15/2022 Sex: Unknown Functional Status None recorded. Mental Status None recorded. Family History Relationship Description Onset Age of this Age Resolved Age Notes LastModified by Organization Details LastModified Time Brother Diverticulit is [email or web address] Not available 04/13 11:59:57 Father Malignant tumor of lung Not available 04/13 12:00:09 Mother Malignant tumor of lung [email or web address] Not available 04/13 12:00:09 Medical History Condition Response Diabetes N Sexually Transmitted Infection N Other N Bleeding Disorder N High Blood Pressure N Kidney Stones N Cancer N Lung Disease N Depression N High Cholesterol Y GERD/Acid Reflux N Heart Disease N Immunizations Vaccine Type Date Status Note Provider Nam e and Address Organization Details Recorded Time Influenza, split virus, trivalent, PF 5 completed Marianna ramirez [facility] 05/15/2022 14:18:35 COVID-19, mRNA, LNP-S, PF, 30 mcg/0.3 mL dose 1 completed Marianna ramirez [facility] 05/15/2022 14:18:35 Influenza, split virus, trivalent, preservative 4 [facility] 14:18:35 Influenza, split virus, quadrivalent, PF 8 completed Marianna ramirez [facility] 05/15/2022 14:18:35 Influenza, split virus, trivalent, preservative 3 completed Marianna ramirez [facility] 05/15/2022 14:18:35 zoster recombinant 0 completed Marianna ramirez [facility] 05/15/2022 14:18:35 zoster recombinant 1 completed Marianna ramirez [facility] 05/15/2022 14:18:35 Influenza, recombinant, quadrivalent, PF 1 completed Marianna ramirez, [facility] 05/15/2022 14:18:35 COVID-19, mRNA, LNP-S, PF, 30 mcg/0.3 mL dose 1 completed Marianna ramirez, [facility] 05/15/2022 14:18:35 Influenza, split virus, trivalent, preservative 1 completed Marianna Villeda null, [facility] 05/15/2022 14:18:35 COVID-19, mRNA, LNP-S, PF, 30 mcg/0.3 mL dose 1 completed Marianna ramirez, [facility] 05/15/2022 14:18:35 Influenza, MDCK, quadrivalent, PF 0 completed Marianna ramirez, [facility] 05/15/2022 14:18:35 Past Encounters Encounter ID Performer Location Encounter Start Date Encounter Closed Date Diagnosis/Indication Diagnosis SNOMED-CT Code Diagnosis ICD10 Code Diagnosis Note [id number] Chris Gonzales MD _[facility] [address] [place] [address] 04/13/2022 11:37:47 04/18/2022 16:28:27 Pain in testicle 13761252 N50.819 Pain in scrotum 20811925 N50.82 [id number] Marianna [facility] [address] [place] [address] 05/15/2022 14:06:39 05/17/2022 14:10:24 Cyst of epididymis 92778100 N50.3 [id number] Chris Gonzales MD _[place] [address] [place] [address] 08/11/2022 14:01:21 08/15/2022 13:04:45 Cyst of epididymis 90791267 N50.3 [id number] Chris Gonzales MD _[facility] [address] [place] [address] 03/13/2023 16:20:43 03/19/2023 08:26:03 Benign neoplasm of epididymis 35882412 D29.32 [id number] Chris Gonzales MD [facility] [address] [place] [address] 05/10/2023 09:34:15 05/21/2023 17:26:05 Cyst of epididymis 76599644 N50.3 Health Concerns Section Related Observation LastModified by Organization Detai ls LastModified Time None Recorded Concern Status LastModified by Organization Details LastModified Time None Recorded Advance Directives Directive None Recorded Payers Encounter Date Sequence Insurance Name Policy Number Policy Perez Covered Member ID Perez Member ID Guarantor Name 04/13/2022 1 [facility] [id number] Yon Moreau [id number] Yon Moreau 05/15/2022 1 [facility] [id number] Yon Moreau [id number] Yon Vaughan [facility] 08/11/2022 1 [facility] [id number] Yon Clement Moreau [id number] Yon Vaughan Binsyadira 03/13/2023 1 [facility] [id number] Yon Clement Moreau [id number] Yon Vaughan Binsfeld 05/10/2023 1 [facility] [id number] Yon Clement Moreau [id number] Yon Forbesformerly [facility] Notes Date Note Type Note Provider Name [...] and driving long time. Chris Gonzales MD [address], [place], [address], [facility] 04/13/2022 12:22:32 05/15/2022 text/html has U/S done aft er the last visit and showed varicocele left >right. still getting some bother from the left side. Marianna ramirez, [facility] 05/15/2022 14:35:58 08/11/2022 text/html post op check af ter partial epididymectomy. some discomfort above the testicle still. swelling mostly gone. Chris Gonzales MD [address] [place] [address],[address], [place], [address], [facility] 08/11/2022 14:39:15 03/13/2023 text/html having discomfor t in area of spermatocelectomy done eary July last year, was goo for about 4 months and then started. not noticing much swelling. Chris Gonzales MD [address] [place] [address],[address], [place], [address], [facility] 03/13/2023 17:05:49 05/10/2023 text/html 3 week follow up after epididymal cyst removal. doing well since surgery, no issues. Chris Gonzales MD [address] [place] [address],[address], [place], [address], [facility] 05/10/2023 09:55:51
[2024-09-26 19:11] VITALS: BP 181/94; PULSE 83; RESP 20; TEMP 36.8; O2SAT 99; BMI 32.1
[2024-09-26 19:30] VITALS: O2SAT 99
--- NOTE | 2024-09-26 19:32 | ED.GENADULT ---
HPI - General Adult General Chief complaint: Sore Throat Stated complaint: Tingling in his face, sore throat Time Seen by Provider: 09/26/24 19:31 History of Present Illness HPI narrative: CC: Intermittent Left Side Face/ Arm Numbness, Sore Throat pt. with intermittent numbness for last month. denies fevers, n/v, diarrhea. also c/o sore throat. did start using cpap a week ago . does see Dr. Curtis on oct 02. 59-year-old man presenting to the emergency department with concern of numbness over both sides of his face and left arm. Last occurred this morning. Also describes a tingling as. Not associated with weakness. This is been going on for a month or 2. He also has been having increasing neck pain indicates especially around looks like C7 or so. This did numb or tingling sensations do just come and go. Also has sleep apnea. Thought was maybe that this would be related to CPAP/sleep apnea. Has been using the CPAP regularly finally over the last week. Did get a better mask I believe today. Has also been struggling with increasingly sore throat. Just difficult to swallow due to the amount of pain he is experiencing. No noted fevers. They thought maybe the sore throat was related to snoring. Since using the CPAP released over this last week though is only gotten worse. Neck is painfully cracking. Burning sensation in the throat is somewhat like when he used to get heartburn and so has been taking omeprazole though it is at least 3 years old he says, over the last week or so. Or in [place] recently and got some tramadol but this does not seem to help the sore throat. By the time I am seeing Mr. Andrei nicholson, his swabs have resulted negative for COVID influenza RSV and strep throat In later conversation reveal that had some unexplained findings not entirely dissimilar but in the lower extremities and back some years ago. There was some question of possible MS. Extensive evaluation found nothing conclusive. Related Data Previous Rx's ?Medication ?Instructions ?Recorded amitriptyline 10 mg tablet 20 mg (2 x 10 mg) PO .Bedtime #180 05/02/24 tabs atorvastatin 20 mg tablet 20 mg PO .Bedtime #90 tabs 05/02/24 omeprazole 40 mg capsule,delayed 40 mg PO DAILY 2 weeks #14 caps 09/26/24 release Allergies Allergy/AdvReac Type Severity Reaction Status Date / Time Penicillins Allergy Intermediate Hives Verified 09/26/24 19:14 silver Allergy Mild Rash Verified 09/26/24 19:14 acetaminophen (From Percocet) Allergy Unknown Rash Verified 09/26/24 19:14 oxycodone (From Percocet) Allergy Unknown Rash Verified 09/26/24 19:14 nickel Allergy Mild Rash Uncoded 09/10/24 09:01 [facility] Medical History Scrotal pain ?N50.82 - Scrotal pain (ICD-10) History of diverticulitis of colon ?Z87.19 - Personal history of other diseases of the digestive system (ICD-10) History of depression ?Z86.59 - Personal history of other mental and behavioral disorders (ICD-10) History of anxiety ?Z86.59 - Personal history of other mental and behavioral disorders (ICD-10) Surgical History S/P excision of varicocele ?Z98.890 - Other specified postprocedural states (ICD-10) ?Z86.79 - Personal history of other diseases of the circulatory system (ICD-10) Status post wrist surgery ?Z98.890 - Other specified postprocedural states (ICD-10) History of colostomy reversal ?Z98.890 - Other specified postprocedural states (ICD-10) History of hernia repair ?Z98.890 - Other specified postprocedural states (ICD-10) ?Z87.19 - Personal history of other diseases of the digestive system (ICD-10) History of open reduction and internal fixation (ORIF) procedure ?Z98.890 - Other specified postprocedural states (ICD-10) History of colostomy History of arthroscopy of right shoulder ?Z98.890 - Other specified postprocedural states (ICD-10) History of arthroscopy of right knee ?Z98.890 - Other specified postprocedural states (ICD-10) Family History Mother Lung cancer Father Lung cancer Brother Diverticulitis Sister Rheumatoid arthritis Paternal Grandfather Coronary artery disease Maternal Grandfather Coronary artery disease Social History What is your current living situation?: I presently have a place to live Problems where you live: no known problems In the past 12 months, utilities in danger of being shut off: no In past 12 months, lack of transportation kept you from medical appts, meetings, work, or getting things needed for daily living: no In the past 12 mos, have been you worried that your food would run out before you had money to buy more?: never true In the past 12 mos, the food you bought just didn't last and you didn't have money to buy more?: never true Smoking Status: Former smoker Second hand tobacco smoke exposure: No How often do you have a drink containing alcohol: never AUDIT-C Alcohol total score: 0 Non-prescribed substance use: denies use How often does anyone, including family, friends and others, physically hurt you: never How often does anyone, including family, friends and others, insult or talk down to you: never How often does anyone, including family, friends and others, threaten you with harm: never How often does anyone, including family, friends and others, scream or curse at you: never Exam Narrative: Exam Narrative: Pleasant. Appears mildly anxious. Eyes are injected. Seems to have some soreness with movement of his neck. Restricted little bit to 30? of rotation. Sore to palpation in the low mid cervical spine area. He does resist Spurling's ultimately this is not really possible to test. Cranial nerves 2-12 are intact. Pupils are 3 mm and equal. No deficits appreciated at this time. No weakness in the upper extremities. No loss of sensation at this time Oropharynx without large edematous uvula. He does have mild erythema diffusely. No asymmetry or edema noted. Mildly painful with swallowing but mechanism appears to be intact. Const: Vital Signs, click to edit/add: Vital Signs - 24 hr 09/26/24 19:11 09/26/24 19:30 09/26/24 21:58 Temperature 98.2 F 98.2 F Pulse Rate [Right Pulse Oximeter] 83 81 Respiratory Rate 20 20 Blood Pressure [Ri ght Upper Arm] 181/94 H 168/84 H Pulse Oximetry 99 99 99 Oxygen Delivery Me thod Room Air Room Air 09/26/24 21:59 Temperature 98.2 F Pulse Rate [Right Pulse Oximeter] 81 Respiratory Rate 20 Blood Pressure [Ri ght Upper Arm] 168/84 H Pulse Oximetry Oxygen Delivery Me thod Documenting provider has reviewed patient's vital signs: yes Course Vital Signs Vital signs: Initial Vital Signs Temperature 98.2 F 09/26/24 19:11 Temperature Source Temporal Artery Scan 09/26/24 19:11 Pulse Rate 83 09/26/24 19:11 Respiratory Rate 20 09/26/24 19:11 Respiratory Effort Normal, Spontaneous, Non-Labored 09/26/24 19:11 Respiratory Depth Normal 09/26/24 19:11 Respiratory Pattern Normal 09/26/24 19:11 Blood Pressure 181/94 H 09/26/24 19:11 Blood Pressure Mean 123 H 09/26/24 19:11 Blood Pressure Position Sitting 09/26/24 19:11 Pulse Oximetry 99 09/26/24 19:11 Oxygen Delivery Method Room Air 09/26/24 19:11 Vital Signs Temperature 98.2 F 09/26/24 19:11 Pulse Rate 83 09/26/24 19:11 Respiratory Rate 20 09/26/24 19:11 Blood Pressure 181/94 H 09/26/24 19:11 Pulse Oximetry 99 09/26/24 19:11 Oxygen Delivery Method Room Air 09/26/24 19:11 Temperature 98.2 F 09/26/24 21:59 Pulse Rate 81 09/26/24 21:59 Respiratory Rate 20 09/26/24 21:59 Blood Pressure 168/84 H 09/26/24 21:59 Pulse Oximetry 99 09/26/24 21:58 Oxygen Delivery Method Room Air 09/26/24 21:58 Medications Administered Medications: Discontinued Medications Generic Name Dose Route Start Last Admin Trade Name Freq PRN Reason Stop Dose Admin Sodium Chloride 500 mls @ 1,000 mls/hr 09/26/24 20:23 09/26/24 21:24 0.9 % Sodium Chloride 500 Ml IV 09/26/24 20:52 Infused .Q30M ONE Infusion Medical Decision Making MDM Narrative Medical decision making narrative: Certainly could have some viral pharyngitis but seems to have multiple issues here. Some intracranial vascular issue that could be contributing to these symptoms? Have trouble explaining the facial symptoms that are occurring as potentially occurring in the neck but certainly cervical impingement could be explaining the arm symptoms. Does feel as though some anxieties exacerbating some of the symptoms as well. Most concerning etiology would be head or neck vascular problem. CT angio of head and neck with this in mind. Cervical spine right as well considering the degree of pain he has been experiencing though admittedly this does not answer all the questions of the soft tissue burning in his neck. This might be partly reflux related again. Later conversation reveals I think he is concerned about this pain is neck/throat being potentially cancer related Extensive CT imaging of head and neck is done. Some degenerative changes noted about the cervical spine. No unusual lymphadenopathy is appreciated. No concerning vascular changes. Labs are unremarkable. Returned to discuss findings, or lack there of. See patient discharge plan for further discussion Prednisone may really help a number of your symptoms. Prescribing this from [facility]. Can continue with your Pepcid at this time. Will add to this though omeprazole for a 2 week course. This will be sent to your pharmacy. Symptomatic treatment of your sore throat otherwise with [id number] anesthetic sprays or lozenges like Chloraseptic or Sucrets. Sleep under the mist of a cool mist humidifier; although as I say this I recall that you are using your CPAP. Please follow-up with ENT as planned in a week or so. If absolutely necessary some <del>Frontenac</del> (only Percocet in [facility] at the moment) will also be available. Yes it might be worthwhile to dust off appointments with neurology pending opinion from ENT. Final read of some of your imaging will be done tomorrow though is reassuring tonight. Medical Records Medical records reviewed: Yes I reviewed the patient's medical records Lab Data Lab results reviewed: Yes I reviewed the patient's lab results Labs: Lab Results 09/26/24 09/26/24 Range/Units 19:10 20:25 WBC 6.87 (4.50-11.00) K/uL RBC 4.98 (4.30-5.90) m/uL Hgb 16.1 (13.5-17.5) gm/dL Hct 46.1 (37.0-53.0) % MCV 93 (80-100) fL MCH 32 (26-34) pg MCHC 35 (32-36) gm/dL RDW Coeff of Dru 11.7 (11.5-15.5) % Plt Count 203 (140-440) K/uL Neut % (Auto) 62.4 (42.0-72.0) % Lymph % (Auto) 27.4 (20-44) % Cobb % (Auto) 7.9 (0.0-11.0) % Eos % (Auto) 1.9 (0.0-7.0) % Baso % (Auto) 0.4 (0.0-3.0) % Neut # (Auto) 4.29 (1.7-7.0) K/uL Lymph # (Auto) 1.88 (0.90-2.90) K/uL Cobb # (Auto) 0.50 (0.00-0.90) K/UL Eos # (Auto) 0.13 (0.00-0.50) K/uL Baso # (Auto) 0.03 (0.00-0.30) K/uL Abs Immat Gran (auto) 0.00 (0.00-0.30) K/uL Imm/Tot Granulo (auto) 0.0 % ESR 6 (2-15) mm/hr Sodium 138 (135-149) mmol/L Potassium 4.3 (3.6-5.1) mmol/L Chloride 101 (96-114) mmol/L Carbon Dioxide 27 (20-32) mmol/L Anion Gap 10 (7-15) mEq/L BUN 17 (7-30) mg/dL Creatinine 0.9 (0.5-1.5) mg/dL Estimated Creat Clear 105.29 Estimated GFR 100 ml/min Glucose 95 (60-115) mg/dL Calcium 9.4 (8.4-10.6) mg/dL C-Reactive Protein < 0.5 L (0.5-1.0) mg/dL SARS-CoV-2 (PCR) Negative SARS-CoV-2 (Negative) Influenza Type A (PCR) Negative PCR FLU A (Negative) Influenza Type B (PCR) Negative PCR FLU B (Negative) RSV (PCR) Negative PCR RSV (Negative) Group A Strep DNA NOT DETECTED (Not Detectd) Discharge Plan Discharge Clinical Impression: Pharyngitis, Paresthesia, Cervicalgia Patient Disposition: Home w/ Parent or Adult Condition: Stable Additional Instructions: Prednisone may really help a number of your symptoms. Prescribing this from [facility]. Can continue with your Pepcid at this time. Will add to this though omeprazole for a 2 week course. This will be sent to your pharmacy. Symptomatic treatment of your sore throat otherwise with sdnf-olv-wqlqmzf anesthetic sprays or lozenges like Chloraseptic or Sucrets. Sleep under the mist of a cool mist humidifier; although as I say this I recall that you are using your CPAP. Please follow-up with ENT as planned in a week or so. If absolutely necessary some <del>Frontenac</del> (only Percocet in [facility] at the moment) will also be available. Yes it might be worthwhile to dust off appointments with neurology pending opinion from ENT. Final read of some of your imaging will be done tomorrow though is reassuring tonight. Prescriptions: New omeprazole 40 mg capsule,delayed release(DR/EC) 40 mg PO DAILY 14 Days Qty: 14 0RF No Action atorvastatin 20 mg tablet 20 mg PO .Bedtime Qty: 90 3RF amitriptyline 10 mg tablet 20 mg PO .Bedtime Qty: 180 3RF Follow Up/Referrals: Ameya Joyce MD [Primary Care Provider] - Stand Alone Forms: [employer] Info Instructions
[2024-09-26 19:39] LABS: Strep A DNA Probe* NOT DETECTED (Not Detectd)
[2024-09-26 19:51] LABS: PCR FLU A Negative PCR FLU A (Negative); PCR FLU B Negative PCR FLU B (Negative); PCR RSV Negative PCR RSV (Negative); SARS PCR* Negative SARS-CoV-2 (Negative)
--- OUTSIDE RECORDS SUMMARY | 2024-09-26 20:19 | XMS_ITS | Clinical Summary ---
Author Organization [facility] Address [place], [place] [address] Care Team Providers Care Health Consultant Name Role Phone George Preston MD Unavailable [phone] Ameya Joyce MD Primary Care Provider [...] Department Care Team Description 06/29/2024 Transcribe Orders [facility] [address] [place] [address] Ameya Joyce MD 06/26/2024 Telephone [facility] [address] [place] [address] Pulmonary, Ulsc Screening from Last 3 Months Immunizations Name Administration Dates Next Due COVID-19 vaccine (SanergyBio NTech 30mcg/0.3mL) DANIELLE CAMPA 12/16/2020,11/25/2020 Influenza RIV4 [...] on file 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 Sex 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 Gender Identity Not on file Sexual Orientation Not on file 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 file Not on file Not on file Obstetrics History Last Filed Vital Signs Vital Sign Reading Time Taken Comments Blood Pressure 114/76 09/21/2015 11:11 AM WATCH AND CLOCK REPAIRER Pulse 84 09/21/2015 10:19 AM WATCH AND CLOCK REPAIRER Temperature 36.1 C (97 F) 09/21/2015 10:19 AM WATCH AND CLOCK REPAIRER Respiratory Rate 20 09/21/2015 10:19 AM WATCH AND CLOCK REPAIRER Oxygen Saturation 97% 09/21/2015 10:19 AM WATCH AND CLOCK REPAIRER Inhaled Oxygen Concentration - - Weight 103 kg (227 lb 1.6 oz) 09/21/2015 10:19 A M WATCH AND CLOCK REPAIRER Height 186.7 cm (6' 1.5) 09/21/2015 10:19 AM CS T Body Mass Index 29.56 09/21/2015 10:19 AM WATCH AND CLOCK REPAIRER Plan of Treatment Upcoming Encounters Date Type Department Care Team (Late st Contact Info) Description 10/28/2024 2:30 PM CDT Office Visit [facility] [address] [place], [place] [id number] Lizabeth Anders MBBS [address] [facility] [address] [place] [address] Health Maintenance Due Date Last Done Comments [...] Completed 05/02/2023 Medical Devices Implanted Type Area Polisher Eyeglass Frames Device Identifier Shelf Expiration Date Model / Serial / Lot Graft Alloderm 6x16cm - [id number] Implanted:Qty: 1 on 03/23/2008 at [facility] Left: Inguinal [employer] OLGA LIDIA 07/13/2009 [id number] / / [id number] Description:LOGGED & MAILED JI Insurance [facility] [employer] [place] [id number] [employer] [place] [id number] [employer] [facility] Advance Directives * Full Code (Latest [...] 6:02 PM 03/20/2008 1:27 PM Care Teams Health Consultant Relationship Specialty Start Date End Date Ameya Joyce MD [address] [place] [address] PCP - General Family Practice 06/30/24 George Preston MD Family Practice 08/19/14
[2024-09-26 20:31] LABS: Basophils Absolute Auto 0.03 K/uL (0.00-0.30); Basophils Percent Auto 0.4 % (0.0-3.0); Eosinophils Absolute Auto 0.13 K/uL (0.00-0.50); Eosinophils Percent Auto 1.9 % (0.0-7.0); Hematocrit 46.1 % (37.0-53.0); Hemoglobin* 16.1 gm/dL (13.5-17.5); Lymphocytes Absolute Auto 1.88 K/uL (0.90-2.90); Lymphocytes Percent Auto 27.4 % (20-44); Mean Corpuscular HGB Conc 35 gm/dL (32-36); Mean Corpuscular Hemoglobin 32 pg (26-34); Mean Corpuscular Volume 93 fL (80-100); Monocytes Percent Auto 7.9 % (0.0-11.0); Neutrophils Absolute Auto 4.29 K/uL (1.7-7.0); Neutrophils Percent Auto 62.4 % (42.0-72.0); Platelet Count* 203 K/uL (140-440); RDW Coefficient of Variation % 11.7 % (11.5-15.5); Red Blood Count 4.98 m/uL (4.30-5.90); White Blood Count* 6.87 K/uL (4.50-11.00)
[2024-09-26 20:43] LABS: Chloride* 101 mmol/L (96-114); Potassium* 4.3 mmol/L (3.6-5.1); Sodium* 138 mmol/L (135-149)
[2024-09-26 20:44] LABS: Slide Review Reflex No
[2024-09-26 20:46] LABS: Creatinine* 0.9 mg/dL (0.5-1.5); Est. Creatinine Clearance* 105.29; Estimated Glomerular Filt Rate 100 ml/min
[2024-09-26 20:47] LABS: Anion Gap 10 mEq/L (7-15); Blood Urea Nitrogen* 17 mg/dL (7-30); Calcium* 9.4 mg/dL (8.4-10.6); Carbon Dioxide* 27 mmol/L (20-32); Glucose* 95 mg/dL (60-115)
[2024-09-26 20:50] LABS: C Reactive Protein* < 0.5 mg/dL (0.5-1.0)
[2024-09-26] MEDS: 0.9 % SODIUM CHLORIDE 500 ML 500 ML 1000 ML IV (20:52)
[2024-09-26 21:36] LABS: Erythrocyte SedimentationRate* 6 mm/hr (2-15)
[2024-09-26 21:58] VITALS: BP 168/84; PULSE 81; RESP 20; TEMP 36.8; O2SAT 99
[2024-09-26 21:59] VITALS: BP 168/84; PULSE 81; RESP 20; TEMP 36.8
== END 2024-09-26 22:00 | disposition home or self-care (01) ==
PROVIDERS: Emergency Provider Family Medicine; PCP Family Medicine
DX: J02.9 Acute pharyngitis, unspecified (principal); R20.2 Paresthesia of skin; M54.2 Cervicalgia
CPT/HCPCS: 36415; 70450; 70491; 70496; 70498; 72125; 80048; 85025; 85651; 86140; 87631; 87651; 94761; 99284; J7030; Q9967

== ENCOUNTER 2024-10-14 07:04 | Outpatient (CLI) | payer OTHER, SELFPAY | END 2024-10-14 07:05 | disposition home or self-care (01) | LOC: MRI 07:05 | PROVIDERS: PCP Family Medicine; Visit Provider Otolaryngology | DX: R20.0 Anesthesia of skin (principal) | CPT/HCPCS: 70553; A9575 ==

== ENCOUNTER 2024-11-04 18:58 | Emergency (ER) | payer OTHER, SELFPAY ==
[2024-11-04] VITALS (18 sets, daily range): BP systolic 133–160; BP diastolic 78–106; PULSE 64–81; RESP 18; TEMP 36.2; O2SAT 84–98; BMI 32.1
--- OUTSIDE RECORDS SUMMARY | 2024-11-04 19:01 | XMS_ITS | Clinical Summary ---
Author Organization [employer] [facility] Address [address] [place] [id number] Care Team Providers Care Verifying Machine Operator Name Role Phone George Preston MD Unavailable [phone] Ameya Joyce MD Primary Care Provider [...] (without mention of hemo rrhage) 03/16/2008 Immunizations Immunization Administration Dates Next Due COVID-19 vaccine (TaxiForSure.comBio NTech 30mcg/0.3mL) DANIELLE CAMPA 12/16/2020,11/25/2020 INFLUENZA, IIV3 PF (AGE >= 6 MO) 06/08/2015 Influenza RIV4 (Age 18+ Years) PRESERV FREE [...] on file 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 Gender Identity Not on file Sexual Orientation Not on file 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 Not on file Not on file Obstetrics History Last Filed Vital Signs Vital Sign Reading Time Taken Comments Blood Pressure 114/76 09/21/2015 11:11 AM ECONOMIC DEVELOPER Pulse 84 09/21/2015 10:19 AM ECONOMIC DEVELOPER Temperature 36.1 C (97 F) 09/21/2015 10:19 AM ECONOMIC DEVELOPER Respiratory Rate 20 09/21/2015 10:19 AM ECONOMIC DEVELOPER Oxygen Saturation 97% 09/21/2015 10:19 AM ECONOMIC DEVELOPER Inhaled Oxygen Concentration - - Weight 103 kg (227 lb 1.6 oz) 09/21/2015 10:19 A M ECONOMIC DEVELOPER Height 186.7 cm (6' 1.5) 09/21/2015 10:19 AM CS T Body Mass Index 29.56 09/21/2015 10:19 AM ECONOMIC DEVELOPER Plan of Treatment Upcoming Encounters Date Type Department Care Team (Late st Contact Info) Description 01/27/2025 8:30 AM CDT Office Visit [facility] [address] [place] [address] Liazbeth Anders MBBS [address] [facility] [address] [email or web address] [address] [place] [address] Health Maintenance Due Date Last Done Comments [...] PCV) 2017 COVID-19 vaccine series (5 - season) 2024 07/04/2022, 08/05/2021, 12/16/2020, Additional history exists Influenza Vaccine (#1) 2024 , 07/04/2022, 07/13/2021, Additional history exists Tetanus booster 05/02/2033 05/02/2023 Zoster (shingles) series for age 50+ Completed 09/01/2020, 05/11/2020 Tdap Completed 05/02/2023 Medical Devices Implanted Type Area Party Coordinator Device Identifier Shelf Expiration Date Model / Serial / Lot Graft Alloderm 6x16cm - [id number] Implanted:Qty: 1 on 03/23/2008 at [facility] Left: Inguinal [employer] OLGA LIDIA 07/13/2009 [id number] / / [id number] Description:LOGGED & MAILED JI Insurance [facility]IE [facility] [employer] [facility] [place] [id number] [employer] [facility] [place] [id number] [employer] [facility] Advance Directives * Full Code (Latest [...] 6:02 PM 03/20/2008 1:27 PM Care Teams Verifying Machine Operator Relationship Specialty Start Date End Date Ameya Joyce MD [address] [place] [address] PCP - General Family Practice 06/30/24 George Preston MD Family Practice 08/19/14
--- OUTSIDE RECORDS SUMMARY | 2024-11-04 19:01 | XMS_ITS | Data Portability ---
Author Organization [place] - [facility], [facility] Address [address] [place] [address] Care Team Providers Care Production Scheduler Name Role Phone SANTOS FLORES Primary Care Provider Assessment No assessment recorded. Plan of Treatment Reminders Order Date Submit Date Provider Last Modified By Organization Details Last Modified Time Details Appointments None recorded. Lab urinalysis , dipstick 2021 022 [email or web address] 9 [facility], [address], [address], [place], [address], 12:03:09 Referral None recorded. Procedures None recorded. Surgeries None recorded. Imaging None recorded. Medication Orders None recorded. Patient TargetsNo targets recorded. Patient Instructions Encounter Date Encounter Id Patient Instructions Last Modified By Organization Details Last Modified Time 04/13/2022 [id number] will set up for scrotal U/S with doppler check for varicocele/cysts in epididymis. Not available 04/13/2022 12:18:41 05/15/2022 [id number] will set up for excision of left epididymal cyst. MARIE discussed. Not available 05/15/2022 14:33:13 08/11/2022 [id number] doing ok will tr y taking Ibu and warm compresses for a while, IBU tabs will also help. Not available 08/11/2022 14:21:43 03/13/2023 [id number] will get scrotal U/S done and call with report. [email or web address] Not available 03/13/2023 17:03:08 05/10/2023 [id number] doing well will increase activity as tolerated. [email or web address] Not available 05/10/2023 09:55:41 Reason for Referral None Reported. Results Created Date Observation Date Name Description Value Unit Range Abnormal Flag Note LastModifiedBy Organization Detail LastModifiedTime 04/13/20 22 04/13/2022 urina lysis , dipst ick pH-Status 6.0 Not Available [facility] [address], [place], [address], 04/13/2022 12:02:44 04/13/20 22 04/13/2022 urina lysis , dipst ick Blood-Status Trace Not Available [facility] [address], [place], [address], 04/13/2022 12:02:44 04/13/20 22 04/13/2022 bladd er scan (PROC ) No observ ation record ed. BARCODE Not Available 2021 12:24:27 04/16/20 22 04/13/2022 US, scrot um No observ ation record ed. [email or web address] [facility] [address], [place], [address], 05/01/2022 12:18:26 03/25/20 23 03/23/2023 US, scrot um No observ ation record ed. [email or web address] [facility] [address], [place], [address], 03/26/2023 13:23:16 Result Notes None recorded. Problems Name Problem SNOMED Code Status Onset Date Resolution Date Notes Provider Name and Address Organization Details Recorded Time Cyst of epididymis 74123858 Active 023 Chris Gonzales MD [address], [place], [address], [facility] 09:55:11 Problem Notes None recorded. Procedures Surgical History Date Name Laterality Status Provider Name and Address Organization Details Recorded Time 04/13/20 22 Bladder Scan completed Chris Gonzales MD [address], [place], [address], [facility] 04/13/2022 11:58:27 05/15/20 18 Colonoscopy completed Marianna Christiana [facility] 05/15/2022 14:19:09 excision of colon completed Chris Gonzales MD [address] [place] [address],[address], [place], [address], [facility] 04/13/2022 12:00:58 procedure on wrist completed Chris Gonzales MD [address] [place] [address],[address], [place], [address], [facility] 04/13/2022 12:01:34 arthroscopic meniscectomy completed Arlene Burnette [facility] 04/13/2022 12:07:19 partial epididymectomy completed Blanca Delong [facility] 03/13/2023 16:26:44 Imaging Results Imaging Date Name Status LastModified by Organiz ation Details LastModified Time 04/13/2022 bladder scan (PROC) completed BARCODE Information not available 04/13/2022 12:24:27 04/13/2022 US, scrotum completed [email or web address] [facility] [place] [address] [place], [address], 05/01/2022 12:18:26 03/23/2023 US, scrotum completed [email or web address] [facility] [place] [address] [place], [address], 03/26/2023 13:23:16 Procedure Notes None recorded. Medical Equipment None Reported. Allergies Allergen ID Allergen Name Allergen Category Reaction Reaction Severity Criticality Documentation Date Start Date Code Code System Note Provider Name and Address Organization Details Recorded Time 650891 Product containin g penicilli n (product) medicatio n Not available Not available Not available 01/29/20202014 34571 8001 SNOMED Not Available Not Available Not Available [...] Updated DateTime 04/13/2022 187.96 cm 30.2 kg/m2 166638.21 g Chris Gonzales MD [address] [place] [address],[facility] [address], [address], [place] [facility] 04/13/2022 11:59:15 Date Recorded Body height Body mass index (BMI) Body weight Provider Name and Address Organization Details Last Updated DateTime 05/15/2022 187.96 cm 30.2 kg/m2 389875.21 g Marianna Christiana [facility] 05/15/2022 14:18:26 Date Recorded Body height Body mass index (BMI) Body weight Provider Name and Address Organization Details Last Updated DateTime 08/11/2022 187.96 cm 30.2 kg/m2 521936.21 g Palak Sawyer [facility] 08/11/2022 14:11:10 Date Recorded Body height Body mass index (BMI) Body weight Provider Name and Address Organization Details Last Updated DateTime 03/13/2023 187.96 cm 30.2 kg/m2 269889.21 g Blanca Delong [facility] 03/13/2023 16:25:24 Date Recorded Body height Body mass index (BMI) Body weight Provider Name and Address Organization Details Last Updated DateTime 05/10/2023 187.96 cm 32.1 kg/m2 385495.09 g Chris Gonzales MD [address] [place] [id number] [place] [address] 05/10/2023 09:45:12 Social History Question Answer Notes LastModified by Organizat ion Details LastModified Time Tobacco Smoking Status Former Smoker Chris Gonzales MD [address] [place], [place] [phone], [facility] 04/13/2022 12:00:38 What Is Your Level Of Alcohol Consumption? Occasional Information not available 03/13/2023 How Many Times Per Week Do You Consume Alcohol? Less Than 1 Time Per Week Information not available 03/13/2023 What Is Your Level Of Caffeine Consumption? Moderate [email or web address] Information not available 03/13/2023 When Did You Quit Smoking? 16+yearssincel astcigarette [email or web address] Information not available 04/13/2022 What Was The Date Of Your Most Recent Tobacco Screening? 03/13/2023 [email or web address] Information not available 03/13/2023 Have You Ever Been Counseled For Unhealthy Alcohol Use? No [email or web address] Information not available 03/13/2023 Do You Use Any Illicit Or Recreational Drugs? No [email or web address] Information not available 03/13/2023 Has Tobacco Cessation Counseling Been Provided? No [email or web address] Information not available 03/13/2023 Do You Or Have You Ever Used Any Other Forms Of Tobacco Or Nicotine? No Information not available 05/15/2022 Sex: Unknown Functional Status None recorded. Mental Status None recorded. Family History Relationship Description Onset Age of this Age Resolved Age Notes LastModified by Organization Details LastModified Time Brother Diverticulit is [email or web address] Not available 04/13 11:59:57 Father Malignant tumor of lung [email or web address] Not available 04/13 12:00:09 Mother Malignant tumor of lung [email or web address] Not available 04/13 12:00:09 Medical History Condition Response Sexually Transmitted Infection N Diabetes N Other N Bleeding Disorder N High Blood Pressure N Kidney Stones N High Cholesterol Y GERD/Acid Reflux N Heart Disease N Cancer N Depression N Lung Disease N Immunizations Vaccine Type Date Status Note Provider Nam e and Address Organization Details Recorded Time Influenza, split virus, trivalent, PF 5 completed Marianna ramirez [facility] 05/15/2022 14:18:35 COVID-19, mRNA, LNP-S, PF, 30 mcg/0.3 mL dose [facility] 14:18:35 Influenza, split virus, trivalent, preservative 4 [facility] 14:18:35 Influenza, split virus, quadrivalent, PF 8 completed Marianna ramirez [facility] 05/15/2022 14:18:35 Influenza, split virus, trivalent, preservative 3 completed Marianna ramirez [facility] 05/15/2022 14:18:35 zoster recombinant 0 completed Marianna ramirez [facility] 05/15/2022 14:18:35 zoster recombinant 1 completed Marianna ramirez [facility] 05/15/2022 14:18:35 Influenza, recombinant, quadrivalent, PF 1 completed Marianna ramirez, [facility] 05/15/2022 14:18:35 COVID-19, mRNA, LNP-S, PF, 30 mcg/0.3 mL dose 1 completed Mariannaharoon Villeda james, [facility] 05/15/2022 14:18:35 Influenza, split virus, trivalent, preservative 1 completed Marianna ramirez, [facility] 05/15/2022 14:18:35 COVID-19, mRNA, LNP-S, PF, 30 mcg/0.3 mL dose 1 completed Marianna ramirez, [facility] 05/15/2022 14:18:35 Influenza, MDCK, quadrivalent, PF 0 completed Marianna Christiana ramirez, [facility] 05/15/2022 14:18:35 Past Encounters Encounter ID Performer Location Encounter Start Date Encounter Closed Date Diagnosis/Indication Diagnosis SNOMED-CT Code Diagnosis ICD10 Code Diagnosis Note [id number] Chris Gonzales MD [facility] [address] [place] [address] 04/13/2022 11:37:47 04/18/2022 16:28:27 Pain in testicle 87272146 N50.819 Pain in scrotum 31121979 N50.82 [id number] Marianna Villeda [facility] [address] [place] [address] 05/15/2022 14:06:39 05/17/2022 14:10:24 Cyst of epididymis 97231197 N50.3 [id number] Chris Gonzales MD [facility] [address] [place] [address] 08/11/2022 14:01:21 08/15/2022 13:04:45 Cyst of epididymis 86803153 N50.3 [id number] Chris Gonzales MD [facility] [address] [place] [address] 03/13/2023 16:20:43 03/19/2023 08:26:03 Benign neoplasm of epididymis 90514201 D29.32 [id number] Chris Gonzales MD [facility] [address] [facility] [address] [place] [address] 05/10/2023 09:34:15 05/21/2023 17:26:05 Cyst of epididymis 41471923 N50.3 Health Concerns Section Related Observation LastModified by Organization Detai ls LastModified Time None Recorded Concern Status LastModified by Organization Details LastModified Time None Recorded Advance Directives Directive None Recorded Payers Encounter Date Sequence Insurance Name Policy Number Policy Perez Covered Member ID Perez Member ID Guarantor Name 04/13/2022 1 [facility] [id number] Yon Moreau [id number] [facility]/15/2022 1 [facility] [id number] Yon Clement Moreau [id number] [facility]on Vaughan [facility] 08/11/2022 1 [facility] [id number] Yon Clement Moreau [id number] [facility]on Vaughan [facility] 03/13/2023 1 [facility] [id number] Yon Clement Moreau [id number] Yon Vaughan [facility] 05/10/2023 1 [facility] [id number] Yon Clement Moreau [id number] [facility] Notes Date Note Type Note Provider Name [...] and driving long time. Chris Gonzales MD [address], [place], [address], [facility] 04/13/2022 12:22:32 05/15/2022 text/html has U/S done aft er the last visit and showed varicocele left >right. still getting some bother from the left side. Marianna ramirez, [facility] 05/15/2022 14:35:58 08/11/2022 text/html post op check af ter partial epididymectomy. some discomfort above the testicle still. swelling mostly gone. Chris Gonzales MD [address], [place], [address], [facility] 08/11/2022 14:39:15 03/13/2023 text/html having discomfor t in area of spermatocelectomy done eary July last year, was goo for about 4 months and then started. not noticing much swelling. Chris Gonzales MD [address] [place] [address],[address], [place], [address], [facility] 03/13/2023 17:05:49 05/10/2023 text/html 3 week follow up after epididymal cyst removal. doing well since surgery, no issues. Chris Gonzales MD [address] [place] [address],[address], [place], [address], [facility] 05/10/2023 09:55:51
--- NOTE | 2024-11-04 19:37 | CRLHL7_ITS ---
For Patients: As a result of the Century Cures Act, medical imaging exams and procedure reports are released immediately into your electronic medical record. You may view this report before your referring provider. If you have questions, please contact your health care provider. INDICATION: Abdominal pain. TECHNIQUE: Ultrasound abdomen limited. Sonographic images of the right upper quadrant were obtained using moody-scale and color Doppler images. COMPARISON: None. FINDINGS: Limited evaluation due to overlying bowel gas. Within these limits: Liver: Echogenic parenchyma. Likely subcentimeter cyst. No suspicious masses. No intrahepatic biliary dilatation. Gallbladder: No stones or sludge. Normal wall thickness. No pericholecystic fluid. Common bile duct: 5 mm. Pancreas: Not well seen. Right kidney: Normal in size. Unremarkable echotexture and cortex. No suspicious masses, stones, or hydronephrosis. Vasculature: Unremarkable. IMPRESSION: 1. No acute findings within the limits of the exam. 2. Steatosis. Dictated by Jesus Kwon MD @ 11/04/2024 10:07:46 PM (Electronically Signed)
--- NOTE | 2024-11-04 19:41 | ED_ITS ---
HPI - Abdominal Pain General Chief Complaint: Abdominal Pain Stated Complaint: Upper RT Abdomen pain Time Seen by Provider: 11/04/24 19:22 History of Present Illness HPI narrative: This 59-year-old male comes in reporting right upper quadrant abdominal pain that has been on off over the past couple months. He states that he has not been feeling well since traveling to [place] a couple months ago. He reports that the right upper quadrant pain comes and goes and seems to be worsened with taking food. He has been eating fruits more frequently lately and these do not seem to bother him. He reports a prior history of diverticulitis in did have about 8 in of his large bowel removed. Related Data Previous Rx's ?Medication ?Instructions ?Recorded amitriptyline 10 mg tablet 20 mg (2 x 10 mg) PO .Bedtime #180 05/02/24 tabs atorvastatin 20 mg tablet 20 mg PO .Bedtime #90 tabs 05/02/24 omeprazole 40 mg capsule,delayed 40 mg PO DAILY 2 weeks #14 caps 09/26/24 release Allergies Allergy/AdvReac Type Severity Reaction Status Date / Time Penicillins Allergy Intermediate Hives Verified 11/04/24 19:08 silver Allergy Mild Rash Verified 11/04/24 19:08 acetaminophen (From Percocet) Allergy Unknown Rash Verified 11/04/24 19:08 oxycodone (From Percocet) Allergy Unknown Rash Verified 11/04/24 19:08 nickel Allergy Mild Rash Uncoded 10/02/24 12:40 Review of Systems Status of ROS Reports: 10 or more systems reviewed and unremarkable except as noted in History and below Narrative Constitutional: No fevers, no weight gain or loss. Eyes: No discharge. No vision changes. HENT: No congestion, no sore throat, no ear pain. Cardiovascular: No chest pain, no palpitations. Respiratory: No shortness of breath, no wheezes, no cough. Gastrointestinal: No vomiting, no diarrhea. Right upper quadrant abdominal pain as described above. Genitourinary: No dysuria, no hematuria. Musculoskeletal: Normal range of motion. Skin: No rashes, no pruritis. Neurological: No dizziness, weakness, sensory change, speech change. Endo/Heme/Allergies: No bruising or bleeding. No polydipsia. Pysch: no suicidality, no anxiety, no insomnia. All other systems reviewed and are negative. [facility] Medical History Scrotal pain ?N50.82 - Scrotal pain (ICD-10) History of diverticulitis of colon ?Z87.19 - Personal history of other diseases of the digestive system (ICD-10) History of depression ?Z86.59 - Personal history of other mental and behavioral disorders (ICD-10) History of anxiety ?Z86.59 - Personal history of other mental and behavioral disorders (ICD-10) Surgical History S/P excision of varicocele ?Z98.890 - Other specified postprocedural states (ICD-10) ?Z86.79 - Personal history of other diseases of the circulatory system (ICD- 10) Status post wrist surgery ?Z98.890 - Other specified postprocedural states (ICD-10) History of colostomy reversal ?Z98.890 - Other specified postprocedural states (ICD-10) History of hernia repair ?Z98.890 - Other specified postprocedural states (ICD-10) ?Z87.19 - Personal history of other diseases of the digestive system (ICD-10) History of open reduction and internal fixation (ORIF) procedure ?Z98.890 - Other specified postprocedural states (ICD-10) History of colostomy History of arthroscopy of right shoulder ?Z98.890 - Other specified postprocedural states (ICD-10) History of arthroscopy of right knee ?Z98.890 - Other specified postprocedural states (ICD-10) Family History Mother Lung cancer Father Lung cancer Brother Diverticulitis Sister Rheumatoid arthritis Paternal Grandfather Coronary artery disease Maternal Grandfather Coronary artery disease Social History What is your current living situation?: I presently have a place to live Problems where you live: no known problems In the past 12 months, utilities in danger of being shut off: no In past 12 months, lack of transportation kept you from medical appts, meetings, work, or getting things needed for daily living: no In the past 12 mos, have been you worried that your food would run out before you had money to buy more?: never true In the past 12 mos, the food you bought just didn't last and you didn't have money to buy more?: never true Smoking Status: Former smoker Second hand tobacco smoke exposure: No How often do you have a drink containing alcohol: never AUDIT-C Alcohol total score: 0 Non-prescribed substance use: denies use How often does anyone, including family, friends and others, physically hurt you : never How often does anyone, including family, friends and others, insult or talk down to you: never How often does anyone, including family, friends and others, threaten you with harm: never How often does anyone, including family, friends and others, scream or curse at you: never Exam Narrative: Exam Narrative: Constitutional: Well-developed, well-nourished, no acute distress. HEENT: Normocephalic, atraumatic. Neck: Normal range of motion. Nontender. Supple. Heart: Regular. No murmurs. Normal rate. Intact distal pulses. Lungs: Clear to auscultation. No chest discomfort. No wheezes, rhonchi, or rales. Abdomen: Normal bowel sounds. Mild tenderness in the right upper quadrant. No rebound tenderness. Genitalia: Deferred. Back: No midline tenderness. Normal range of motion. Extremities: Normal range of motion. No injury. Skin: Intact. No rash. Warm. No erythema or pallor. Neurologic: No altered sensation. No weakness. Alert and oriented. Psychiatric: No suicidality. No anxiety or depression. No insomnia. Nursing notes and vitals signs are reviewed. Const: Vital Signs, click to edit/add: Vital Signs - 24 hr 11/04/24 19:02 11/04/24 19:19 11/04/24 19:30 Temperature 97.2 F L Pulse Rate 79 71 Pulse Rate [Pulse Oximeter] 81 Respiratory Rate 18 Blood Pressure Blood Pressure [Ri ght Upper Arm] 160/98 H Pulse Oximetry 84 L 98 98 Oxygen Delivery Me thod Room Air 11/04/24 19:31 11/04/24 19:45 11/04/24 20:00 Temperature Pulse Rate 72 75 74 Pulse Rate [Pulse Oximeter] Respiratory Rate Blood Pressure 150/106 H Blood Pressure [Ri ght Upper Arm] Pulse Oximetry 98 95 95 Oxygen Delivery Me thod 11/04/24 20:02 Temperature Pulse Rate 73 Pulse Rate [Pulse Oximeter] Respiratory Rate Blood Pressure 146/96 H Blood Pressure [Ri ght Upper Arm] Pulse Oximetry 95 Oxygen Delivery Me thod Course Vital Signs Vital signs: Initial Vital Signs Temperature 97.2 F L 11/04/24 19:02 Temperature Source Temporal Artery Scan 11/04/24 19:02 Pulse Rate 81 11/04/24 19:02 Pulse Rhythm Regular 11/04/24 19:02 Respiratory Rate 18 11/04/24 19:02 Blood Pressure 160/98 H 11/04/24 19:02 Blood Pressure Mean 118 H 11/04/24 19:02 Blood Pressure Position Sitting 11/04/24 19:02 Pulse Oximetry 84 L 11/04/24 19:02 Oxygen Delivery Method Room Air 11/04/24 19:02 Vital Signs Temperature 97.2 F L 11/04/24 19:02 Pulse Rate 81 11/04/24 19:02 Respiratory Rate 18 11/04/24 19:02 Blood Pressure 160/98 H 11/04/24 19:02 Pulse Oximetry 84 L 11/04/24 19:02 Oxygen Delivery Method Room Air 11/04/24 19:02 Temperature 97.2 F L 11/04/24 19:02 Pulse Rate 73 11/04/24 20:02 Respiratory Rate 18 11/04/24 19:02 Blood Pressure 146/96 H 11/04/24 20:02 Pulse Oximetry 95 11/04/24 20:02 Oxygen Delivery Method Room Air 11/04/24 19:02 MDM - Abdominal Pain MDM Narrative Medical decision making narrative: This patient comes in with right upper quadrant pain that seems to be produced when taking certain foods. This was suspicious for gallbladder disease but ultrasound was obtained and shows no evidence of such. The patient then prefers to have CT imaging which was ordered along with lab results. These are all pending at the end of my shift and the oncoming ER doc will look after results. The patient should be okay to be discharged home. I did provide a prescription for Toradol from the [facility] machine. Discharge Plan Discharge Clinical Impression: Abdominal pain Patient Disposition: Home, Self-Care Condition: Stable Prescriptions: No Action atorvastatin 20 mg tablet 20 mg PO .Bedtime Qty: 90 3RF amitriptyline 10 mg tablet 20 mg PO .Bedtime Qty: 180 3RF omeprazole 40 mg capsule,delayed release(DR/EC) 40 mg PO DAILY 14 Days Qty: 14 0RF Follow Up/Referrals: Ameya Joyce MD [Primary Care Provider] - Stand Alone Forms: [employer] Info Instructions
--- OUTSIDE RECORDS SUMMARY | 2024-11-04 20:07 | XMS_ITS | Clinical Summary ---
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 Not on file Not on file Not on file Obstetrics History Last Filed Vital Signs Vital Sign Reading Time Taken Comments Blood Pressure 114/76 09/21/2015 11:11 AM ENTERPRISE ACCOUNT EXECUTIVE Pulse 84 09/21/2015 10:19 AM ENTERPRISE ACCOUNT EXECUTIVE Temperature 36.1 C (97 F) 09/21/2015 10:19 AM ENTERPRISE ACCOUNT EXECUTIVE Respiratory Rate 20 09/21/2015 10:19 AM ENTERPRISE ACCOUNT EXECUTIVE Oxygen Saturation 97% 09/21/2015 10:19 AM ENTERPRISE ACCOUNT EXECUTIVE Inhaled Oxygen Concentration - - Weight 103 kg (227 lb 1.6 oz) 09/21/2015 10:19 A M ENTERPRISE ACCOUNT EXECUTIVE Height 186.7 cm (6' 1.5) 09/21/2015 10:19 AM CS T Body Mass Index 29.56 09/21/2015 10:19 AM ENTERPRISE ACCOUNT EXECUTIVE Plan of Treatment Upcoming Encounters Date Type Department Care Team (Late st Contact Info) Description 01/27/2025 8:30 AM CDT Office Visit [facility] [address] [place] [address] Lizabeth Anders MBBS [address] [facility] [address] [place] [address] Health Maintenance Due Date Last Done Comments [...] Completed 05/02/2023 Medical Devices Implanted Type Area Boat Canvas Maker Installer Device Identifier Shelf Expiration Date Model / Serial / Lot Graft Alloderm 6x16cm - [id number] Implanted:Qty: 1 on 03/23/2008 at [facility] Left: Inguinal [employer]GA LIDIA 07/13/2009 [id number] / / [id number] Description:LOGGED & MAILED JI Insurance [facility] [employer] [facility] [place] [id number] [employer] [facility] [place] [id number] [employer] [facility] Advance Directives * Full Code (Latest Code [...] 6:02 PM 03/20/2008 1:27 PM Care Teams Motion Picture Photographer Relationship Specialty Start Date End Date Ameya Joyce MD [id number] [place] [address] PCP - General Family Practice 06/30/24 George Preston MD Family Practice 08/19/14
--- NOTE | 2024-11-04 21:53 | CRLHL7_ITS ---
For Patients: As a result of the 21st Century Cures Act, medical imaging exams and procedure reports are released immediately into your electronic medical record. You may view this report before your referring provider. If you have questions, please contact your health care provider. INDICATION: UPPER EPIGASTRIC PAIN TECHNIQUE: CT abdomen and pelvis acquired with 122 cc Isovue 370 IV contrast. COMPARISON: February 2022. FINDINGS: Lower chest: The visualized lower lungs are aerated. No pleural or pericardial effusion. ABDOMEN: Liver: Normal enhancement. Left cyst. Subcentimeter hypodensities are too small to characterize however statistically represent cysts. Gallbladder and biliary: Normal gallbladder without radiopaque stone. Normal caliber bile ducts. Spleen: Normal size and enhancement. Pancreas: Normal enhancement without peripancreatic inflammatory changes or ductal dilatation. Adrenal glands: Normal adrenal glands. Kidneys and ureters: Normal enhancement. No radio-opaque calculi. No hydroureteronephrosis. Non simple attenuation posterior left renal exophytic focus, incompletely characterized on this exam. Measuring 10 millimeters. GI tract: The stomach is relatively decompressed. Normal caliber small and large bowel loops. Normal appendix. Changes partial sigmoid resection with anastomosis. Vascular structures: Normal caliber aorta with atherosclerotic calcifications. Lymph nodes: No lymphadenopathy in the abdomen or pelvis by size criteria. Peritoneum: No free air, free fluid, or focal drainable fluid collection. PELVIS: Genitourinary system: Circumferential wall thickening of the urinary bladder. This may be secondary to muscular hypertrophy in the setting of chronic outlet obstruction from an enlarged prostate. SKELETAL STRUCTURES AND SOFT TISSUES: Grade 1 anterolisthesis of L5 on S1 secondary to bilateral L5 pars defects. IMPRESSION: 1. No discrete acute abdominal process. 2. Circumferential wall thickening of the urinary bladder. This may be secondary to muscular hypertrophy in the setting of chronic outlet obstruction from an enlarged prostate. Consider correlation with urinalysis. 3. Non simple attenuation posterior left renal exophytic focus, incompletely characterized on this exam. Measuring 10 millimeters. While this may reflect a proteinaceous/hemorrhagic cyst, this is incompletely characterized on this exam. Consider nonemergent renal protocol MRI to document cystic versus solid nature. Please note that all CT scans at this facility use dose modulation, iterative reconstruction, and/or weight-based dosing when appropriate to reduce radiation dose to as low as reasonably achievable. Dictated by Jesus Babcock MD @ 11/04/2024 11:25:07 PM (Electronically Signed)
[2024-11-04 22:25] LABS: Albumin* 4.6 g/dL (3.3-5.0); Chloride* 104 mmol/L (96-114); Potassium* 3.9 mmol/L (3.6-5.1); Sodium* 139 mmol/L (135-149)
[2024-11-04 22:28] LABS: Alanine Aminotransferase* 61 U/L (4-50); Alkaline Phosphatase* 32 U/L (40-150); Anion Gap 8 mEq/L (7-15); Aspartate Amino Transferase* 40 U/L (12-35); Bilirubin Direct* 0.2 mg/dL (0.0-0.5); Bilirubin Total* 0.6 mg/dL (0.1-1.5); Blood Urea Nitrogen* 14 mg/dL (7-30); Calcium* 9.7 mg/dL (8.4-10.6); Carbon Dioxide* 27 mmol/L (20-32); Creatinine* 0.8 mg/dL (0.5-1.5); Est. Creatinine Clearance* 118.45; Estimated Glomerular Filt Rate 103 ml/min; Glucose* 94 mg/dL (60-115); Lipase* 111 U/L (23-300); Total Protein* 7.2 g/dL (6.0-8.3)
[2024-11-04 22:48] LABS: Basophils Absolute Auto 0.04 K/uL (0.00-0.30); Basophils Percent Auto 0.7 % (0.0-3.0); Eosinophils Percent Auto 1.6 % (0.0-7.0); Hematocrit 46.4 % (37.0-53.0); Immature Granulocytes Abs Auto 0.02 K/uL (0.00-0.30); Immature Granulocytes Pct Auto 0.3 %; Lymphocytes Absolute Auto 2.16 K/uL (0.90-2.90); Lymphocytes Percent Auto 35.4 % (20-44); Mean Corpuscular HGB Conc 35 gm/dL (32-36); Mean Corpuscular Hemoglobin 32 pg (26-34); Mean Corpuscular Volume 94 fL (80-100); Monocytes Percent Auto 7.9 % (0.0-11.0); Neutrophils Percent Auto 54.1 % (42.0-72.0); Platelet Count* 203 K/uL (140-440); Red Blood Count 4.96 m/uL (4.30-5.90)
[2024-11-04 22:54] LABS: C Reactive Protein* < 0.5 mg/dL (0.5-1.0)
[2024-11-04 22:55] LABS: Slide Review Reflex No
[2024-11-04 23:45] LABS: Erythrocyte SedimentationRate* 7 mm/hr (2-15)
== END 2024-11-04 23:47 | disposition home or self-care (01) ==
PROVIDERS: Emergency Provider Emergency Medicine Emergency Medical Services; PCP Family Medicine
DX: R10.11 Right upper quadrant pain (principal)
CPT/HCPCS: 36415; 74177; 76705; 80048; 80076; 83690; 85025; 85651; 86140; 99283; 99284; Q9967

== ENCOUNTER 2024-11-10 06:29 | Outpatient (CLI) | payer OTHER, SELFPAY ==
--- NOTE | 2024-11-10 07:44 | P.ANES_ITS ---
Anesthesia Charges Start Date/Time Anesthesia Start Date: 11/10/24 Anesthesia Start Time: 07:20 Stop Date/Time Anesthesia Stop Date: 11/10/24 Anesthesia Stop Time: 07:40 Coding CPT Codes CPT Codes: ANES UPR GI NDSC PX NOS - 65784 ([id number]) P2 - PATIENT W/MILD SYST DISEASE, QZ - SYSTEMS SOFTWARE SPECIALIST SVC W/O CROP INSURANCE CLAIMS ADJUSTER BY
--- NOTE | 2024-11-10 07:44 | W.ANESCHARGE ---
Anesthesia Charges Start Date/Time Anesthesia Start Date: 11/10/24 Anesthesia Start Time: 07:20 Stop Date/Time Anesthesia Stop Date: 11/10/24 Anesthesia Stop Time: 07:40 Coding CPT Codes CPT Codes: ANES UPR GI NDSC PX NOS - 94157 ([id number]) P2 - PATIENT W/MILD SYST DISEASE, QZ - SPEECH INSTRUCTOR SVC W/O BRAILLE TEACHER BY
== END 2024-11-10 06:30 | disposition home or self-care (01) ==
LOC: OP CLINIC 06:29
PROVIDERS: PCP Family Medicine; Visit Provider Internal Medicine
DX: R10.13 Epigastric pain (principal)
CPT/HCPCS: 00731; 43239; 88305; J2704; J3490

== ENCOUNTER 2024-11-14 15:16 | Outpatient (CLI) | payer OTHER, SELFPAY ==
--- NOTE | 2024-11-14 15:30 | CRLHL7_ITS ---
For Patients: As a result of the Century Cures Act, medical imaging exams and procedure reports are released immediately into your electronic medical record. You may view this report before your referring provider. If you have questions, please contact your health care provider. INDICATION: Lesion left kidney. COMPARISON: CT abdomen and pelvis with and without contrast February 20, 2022 and November 04, 2024; ultrasound examination of the abdomen November 04, 2024. TECHNIQUE: MRI of the abdomen without and with intravenous contrast; precontrast T1 and T2 weighted imaging; T2 haste imaging; diffusion-weighted imaging; in and out of phase imaging; postcontrast imaging including subtraction; 20 cc of dotarem contrast was injected IV. FINDINGS: A 1.0 cm lesion identified along the posterior aspect of the lower pole left kidney. Slightly higher signal identified on the precontrast T2 haste imaging and low signal on the precontrast T1 weighted imaging without obvious enhancement postcontrast administration. No other renal pathology. Simple hepatic cysts. No focal hepatic or splenic pathology. No pancreatic pathology. The gallbladder is unremarkable. No adrenal pathology. No retroperitoneal lymphadenopathy. IMPRESSION: A 1.0 cm cystic lesion in the posterior lower pole left kidney without any obvious enhancement postcontrast administration; as the lesion is exophytic and too small to adequately characterize; no obvious fat identified; suggest obtaining a follow-up CT of the left kidney without and with intravenous contrast in 6 months duration. Dictated by Pat Bradford MD @ 11/17/2024 8:49:10 AM (Electronically Signed)
== END 2024-11-14 15:17 | disposition home or self-care (01) ==
LOC: MRI 15:16
PROVIDERS: PCP Family Medicine; Visit Provider Family Medicine
DX: N28.89 Other specified disorders of kidney and ureter (principal)
CPT/HCPCS: 74183; A9575

== ENCOUNTER 2024-11-24 14:18 | Outpatient (CLI) | payer OTHER, SELFPAY ==
--- NOTE | 2024-11-24 14:30 | CRLHL7_ITS ---
For Patients: As a result of the Century Cures Act, medical imaging exams and procedure reports are released immediately into your electronic medical record. You may view this report before your referring provider. If you have questions, please contact your health care provider. INDICATION: Neck pain. COMPARISON: Sagittal T1, T2, and STIR sequences. Axial T2/gradient sequences. FINDINGS: Normal vertebral body facet alignment. No fractures. Vertebral body loss of height. No spondylosis. No ligamentous injury. No suspicious osseous lesions. Normal cord signal. No intradural mass or lesion. Marrow edema of the articular processes of the right C4-5 facet joint which may be secondary to stress reaction or mild inflammation from facet arthritis. C1-2: No spinal canal narrowing. C2-3: No spinal canal neural foraminal narrowing. C3-4: Disc generation broad-based disc osteophyte complex. Mild narrowing of spinal canal. Moderate narrowing of bilateral foramina. C4-5: No narrowing of spinal canal. Uncovertebral joint hypertrophy results in mild narrowing of the right neural foramen. No narrowing of the left neural foramen. C5-6: Disc generation broad-based disc osteophyte complex. Mild narrowing of spinal canal. Mild narrowing of bilateral foramina. C6-7: Disc generation broad-based disc osteophyte complex. Mild narrowing of spinal canal. Moderate narrowing of bilateral foramina. C7-T1: Disc degeneration and posterior disc bulge. No narrowing of spinal canal. Mild narrowing of bilateral foramina. IMPRESSION: 1. Normal alignment. No fractures. 2. Normal cord signal 3. Marrow edema of the articular processes of the right C4-5 facet joint which may be secondary to stress reaction or mild inflammation 4. At C3-4, moderate narrowing of the bilateral neural foramina 5. At C4-5, mild narrowing of the right neural foramen. 6. At C5-6, mild narrowing of the spinal canal and bilateral neural foramina 7. At C6-7, mild narrowing of the spinal canal. Moderate narrowing of the bilateral neural foramina Dictated by Acosta Deleon MD @ 11/25/2024 10:22:20 AM (Electronically Signed)
== END 2024-11-24 14:19 | disposition home or self-care (01) ==
LOC: MRI 14:20
PROVIDERS: PCP Family Medicine; Visit Provider Family Medicine
DX: M54.2 Cervicalgia (principal); M50.21 Other cervical disc displacement, high cervical region; M50.221 Other cervical disc displacement at C4-C5 level; M50.222 Other cervical disc displacement at C5-C6 level; M50.223 Other cervical disc displacement at C6-C7 level; G89.29 Other chronic pain
CPT/HCPCS: 72141

== ENCOUNTER 2024-12-02 12:51 | Outpatient (CLI) | payer OTHER, SELFPAY ==
--- NOTE | 2024-12-02 13:00 | CRLHL7_ITS ---
For Patients: As a result of the Century Cures Act, medical imaging exams and procedure reports are released immediately into your electronic medical record. You may view this report before your referring provider. If you have questions, please contact your health care provider. INDICATION: 59-year-old man with history of right upper quadrant abdominal pain TECHNIQUE: 7.1 MCi Tc 99m Mebrofenin were administered intravenously and serial static images were obtained over the anterior abdomen over 60 minutes, demonstrating radiotracer uptake within the gallbladder and demonstrating tracer exiting into the small bowel. Subsequently, 2.27 Micrograms cholecystokinin was administered intravenously and the anterior abdomen was serially imaged with static views for another 30 minutes. COMPARISON: MRI abdomen 11/14/2024 FINDINGS: There is normal radionuclide activity in the liver, common bile duct, gallbladder and small bowel. There is no evidence for cystic or common duct obstruction or intrinsic liver disease. After administration of cholecystokinin, tracer is demonstrated exiting the gallbladder into the common bile duct and small bowel. The gallbladder ejection fraction measures 94%. Normal range for GB EF: Equal to or greater than 35%. IMPRESSION: 1. Normal hepatobiliary scan. 2. Gallbladder ejection fraction measures 94%, within normal limits. Dictated by Newton Don MD @ 12/03/2024 9:10:51 AM (Electronically Signed)
== END 2024-12-02 12:52 | disposition home or self-care (01) ==
LOC: NM 12:51
PROVIDERS: PCP Family Medicine; Visit Provider Family Medicine
DX: R10.11 Right upper quadrant pain (principal)
CPT/HCPCS: 78227; A9537; J2805

== ENCOUNTER 2025-01-30 07:30 | Outpatient (RCR) | payer OTHER, SELFPAY | END 2025-05-30 23:59 | disposition home or self-care (01) | PROVIDERS: PCP Family Medicine; Visit Provider Family Medicine | DX: M54.2 Cervicalgia (principal); G89.29 Other chronic pain; Z51.89 Encounter for other specified aftercare | CPT/HCPCS: 97110; 97140; 97162 ==

== ENCOUNTER 2025-03-02 10:06 | Outpatient (CLI) | payer OTHER, SELFPAY ==
--- NOTE | 2025-03-02 10:15 | MR_ITS ---
[address] [address] Phone:?[phone] Fax:?[phone] Referring Physician Information: Chuck Rahman M.D. [id number] [id number] Phone:?[phone] Fax:?[phone] Patient:?Yon Moreau D.O.B:?1965 Sex:?Male Phone:?[phone] [facility] MRN:?[id number] Exam Date:?03/02/2025 EXAM: MRI of the RIGHT KNEE, without contrast CLINICAL HISTORY: Right knee pain COMPARISONS: Radiographs dated 02/17/2025 TECHNICAL: MR sequences of the right knee: sagittals: PD, PDFS coronals: PD, T2FS axials: PD, PDFS CONTRAST: None FINDINGS: Bones: No fracture, bone marrow contusion, or other suspicious bone marrow signal abnormality. Patellofemoral joint: Cartilage: On the background of grade 2-3 patellofemoral chondromalacia, there is some full-thickness articular cartilage fissuring along the median ridge of the patella with mild subjacent bone marrow signal alteration. Retinacula: The medial and lateral retinacula are intact. Fat pads: The infrapatellar, quadriceps, and prefemoral fat pads are unremarkable. Knee joint: Effusion: There is a moderate knee joint effusion. Popliteal cyst: None. Intra-articular bodies: There is a 0.5 x 0.4 x 0.4 cm intra-articular body noted just anterior to the anterior root ligament of the lateral meniscus (sagittal 15, coronal 14). Posteromedial corner: The semimembranosus and pes anserine tendons are intact. Medial compartment: Medial meniscus: The body of the medial meniscus is markedly diminutive in appearance. This may reflect prior partial meniscectomy versus chronic tear and resorption. Cartilage: Diffuse articular cartilage thinning is noted throughout the medial femorotibial compartment with multiple areas of near full-thickness articular cartilage loss and marginal osteophytosis. 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 Lateral compartment: Lateral meniscus: Blunting of the posterior horn of the lateral meniscus with some mild fraying along the undersurface of the posterior horn. Cartilage: On the background of grade 1-2 lateral femorotibial chondromalacia, there is some more focal grade III chondromalacia along the posterior aspect of the lateral femoral condyle. Ligaments: Anterior cruciate ligament: Intact. Posterior cruciate ligament: Intact. Medial collateral ligament: Intact. Posterior oblique ligament: Intact. Fibular collateral ligament: Intact. Posterolateral corner: The distal biceps femoris tendon, iliotibial band, popliteus tendon, popliteus muscle, and popliteofibular ligament are intact. Extensor mechanism: Patellar tendon: Mild diffuse thickening is noted of the patellar tendon, compatible with mild tendinosis. No evidence of patellar tendon tear. Quadriceps tendon: Intact. Neurovascular: Unremarkable neurovascular structures. IMPRESSION: 1. Abnormal appearance of the medial meniscus with a markedly diminutive appearance of the body. This may reflect prior partial meniscectomy versus chronic meniscal tear and retraction. Correlate with any surgical history. 2. Blunting of the posterior horn of the lateral meniscus with mild fraying along the undersurface of the posterior horn. 3. 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 There is also grade 2-3 medial femorotibial chondromalacia and grade 1-2 lateral femorotibial chondromalacia with more focal grade III chondromalacia along the posterior aspect of the lateral femoral condyle. 4. Moderate knee joint effusion with a 0.5 cm intra-articular body just anterior to the anterior root ligament of the lateral meniscus. 5. Cruciate and collateral ligaments are intact and unremarkable. 6. Mild patellar tendinosis without evidence of tear. AW Electronically signed on 03/02/2025 2:00:[address] SOCORRO FELIZ M.D.
== END 2025-03-02 10:07 | disposition home or self-care (01) ==
LOC: MRI 10:07
PROVIDERS: PCP Family Medicine; Visit Provider Orthopaedic Surgery Sports Medicine
DX: M25.561 Pain in right knee (principal); M22.41 Chondromalacia patellae, right knee; M25.461 Effusion, right knee; M17.11 Unilateral primary osteoarthritis, right knee
CPT/HCPCS: 73721

== ENCOUNTER 2025-03-02 14:05 | Outpatient (CLI) | payer OTHER, SELFPAY | END 2025-03-02 14:06 | disposition home or self-care (01) | LOC: NFLDREF 03-03 04:01 | PROVIDERS: PCP Family Medicine; Referring Provider Family Medicine; Visit Provider Family Medicine | DX: M47.812 Spondylosis without myelopathy or radiculopathy, cervical region (principal) | CPT/HCPCS: 84443; 86038; 86431; 86618; 87468; 87469; 87484; 87798 ==